=== PATIENT | female | born 1995 | race African-American/Black ===

== ENCOUNTER 2021-06-21 04:30 | Emergency (ER) | payer BC ==
--- OUTSIDE RECORDS SUMMARY | 2021-06-21 04:33 | XMS REPORT | Continuity of Care Document ---
:1995 Author Organization [facility] t Address [address] [place] [address] Care Team Providers Name Role Phone lcrukhsana Attending Clinician Unavailable Johnny Mario Attending Clinician Unavailable Alistair Attending Clinician Unavailable Stefan Attending Clinician Unavailable Genny Chawla Attending Clinician [phone] Siomn Admitting Clinician Unavailable No Admitting Clinician Unavailable Payers Payer Name Policy Type Policy Number Effective Date Expiration Date S ource Self Pay P [id number] 2019 00:00:00 Problems This patient has no known problems. Allergies, Adverse Reactions, Alerts Allergy Allergy Status Severity Reaction(s) Onset Inactive Treating Comm ents Source Name Type Date Date Clinician lisinopr DA Active SV 2019-0 [facility] [place] [facility] lisinopr DA Active SV ANGIOEDEMA 0 [facility] 08[facility] [place] [facility] No Known DA Active U 2018-0 [facility] Allergie 10-30 [place] [facility] 00:[facility] No Known DA Active U 2018-0 [facility]ie 10-30 [facility] 00:[facility]: [facility] Social History Social Habit Start Date Stop Date Quantity Comments Source time of call 2019-10-06 2019-10-06 10/06/2019 2:14 [facility] 14:13:25 14:13:25 PM Health Medications This patient has no known medications. Procedures This patient has no known procedures. Encounters Start End Encounter Admission Attending Care Care Encounter Source Date/Time Date/Time Type Type Clinicians Facility Department ID 2021-04-03 Outpatient lc.cullen [facility] [id number] [facility] 17:05:13 r [id number] [facility] 2021-04-03 Outpatient lc.cullen [facility] [id number] [facility] 17:03:25 r [id number] [facility] 2021-04-03 Outpatient lc.cullen [facility] [id number] [facility] 16:14:18 r [id number] [facility] 2020-09-18 Inpatient HCANW TREVON [id number] [facility] 07:41:00 [id number] [facility] 2020-04-20 Inpatient HCANW TREVON [id number] [facility] 22:25:00 [id number] [facility] 2019-08-27 Inpatient HCANW TREVON [id number] [facility] 00:37:00 [id number] [facility] 2019-10-06 2019-10-06 Office [place] [facility] L egacy Encounter/ [facility] 00:00:00 00:00:00 Visit [facility] 1902 [id number] [facility] [id number] [facility] 2019-08-24 2019-08-24 Office [place] [facility] Encounte r/ [facility] 00:00:00 00:00:00 Visit Artie Frazier [id number] [facility] [place] [id number] [facility] Results Test Description Test Time Test Comments Results Result Comments Source Novel Coronavirus 2019 nCoV 2020-04-23 19:50:00 Test Item Value Reference Range Interpretation Comme nts Novel Coronavirus 2019 Detected Not Detected A Criti enid Value reported toFirst nCoV (test code = COVID19) N cathy:[SOLANGE] Last Name:[VILLA]RES ULTS READ BACK AND VERIFIEDby INF E, on 04/23/20, @ 1950.Testing wa s performed using the Aptima SARS -CoV-2 assay.This nucleic acid am plification test was developed and i tsperformance characteristics determined by [facility]. Nucleic acid amplification t ests include PCRand TMA. This test has not been FDA cleared or appr kathie.This test has been authorized by FDA under an Emergency UseAu thorization (EUA). This test is on ly authorized forthe duration of lula e the declaration that circumstan cesexist justifying the authorizati on of the emergency use ofin vitro diagnostic tests for detection of SA RS-CoV-2 virusand/or diagnosis of CO VID-19 infection under [id number] 4(b)(1) of the Act, 21 U.S.C. 360bb b-3(b) (1), unless theauthorizatio n is terminated or revoked sooner. When diagnostic testing is nega tive, the possibility of afalse negative result should b e considered in the contextof a pat ient's recent exposures and t he presence ofclinical sign s and symptoms consistent with COVID-19. Anindividual wi thout symptoms of COVID-19 and wh o is notshedding SARS-CoV-2 viru s would expect to have a negative (not detected) result in this assay.Performed At: [facility] [place], [place] [id number] Tutu Petty MD Ph:[phone] Does patient have the clinical criteria consistent with COVID-19? YIs the patient going to be discharged home? YNovel Coronavirus 2019 [id number] 17:08:00 Test Item Value Reference Range Interpretation Comments Novel Coronavirus Detected Not Detected A Critical V alue reported 2019 nCoV (test toFirst Name :[] Last code = COVID19) Name:[]RESUL TS READ BACK AND VERIFIEDby INFCE, on 04/22/20, @ 170 8.Testing was performed u sing the Aptima SARS-CoV -2 assay.This nucl eic acid amplification t est was developed and itsperformance characteristics determined by [facility]. Nucleic acid am plification tests include P Carter TMA. This test has n ot been FDA cleared or appr kathie.This test has been a uthorized by FDA under an Emergency UseAuthorizatio n (EUA). This test is on ly authorized fort he duration of time the dec laration that circumsthuy cesexist justifying the authorization o f the emergency use o fin vitro diagnostic test s for detection of SA RS-CoV-2 virusand/or maria luz gnosis of COVID-19 infect ion under lwbvybd793(b)(1 ) of the Act, 21 U.S.C. 360bbb-3(b) (1), unless theauthorizatio n is terminated or r evoked sooner.When maria luz gnostic testing is nega tive, the possibility of afalse negative result should be considered in t he contextof a pat ient's recent exposure s and the presence ofclin ical signs and symptoms co nsistent with COVID-19. Anindividual wi thout symptoms of COV ID-19 and who is notshedd ing SARS-CoV-2 viru s would expect to have a negative(not de tected) result in this assay.Performed At: [facility] [address] [id number] Tutu Petty MD Ph:[phone] Does patient have the clinical criteria consistent with COVID-19? YIs the patient going to be discharged home? YCBC W/AUTO [id number] 01:57:00 Test Item Value Reference Range Interpretation Comments WHITE BLOOD CELL (test code = 8.4 x10 3/uL 3.2-11.5 N WBC) RED BLOOD CELL (test code = 4.81 x10(6)/m 3.70-5.10 N RBC) HEMOGLOBIN (test code = HGB) 12.4 g/dL 12.0-15.0 N HEMATOCRIT (test code = HCT) 40.8 % 35.7-44.8 N MEAN CELL VOLUME (test code = 85 fL 80-100 N MCV) MEAN CELL HGB (test code = MCH) 25.8 pg 26.2-33.8 L MEAN CELL HGB CONCENTRATION 30.4 g/dL 30.0-34.0 N (test code = MCHC) RED CELL DISTRIBUTION WIDTH 13.5 % 11.3-14.5 N (test code = RDW) PLATELET COUNT (test code = 177 x10 3/uL 130-408 N PLT) MEAN PLATELET VOLUME (test code 11.6 fL 8.6-12.6 N = MPV) NEUTROPHIL % (test code = NT%) 80.1 % 40.0-70.0 H IMMATURE GRANULOCYTE % (test 0.6 % 0.0-2.0 N code = IG%) LYMPHOCYTE % (test code = LY%) 10.2 % 20-40 L MONOCYTE % (test code = MO%) 6.6 % 1-10 N EOSINOPHIL % (test code = EO%) 2.0 % 0.0-5.0 N BASOPHIL % (test code = BA%) 0.5 % 0.0-1.0 N NUCLEATED RBC % (test code = 0.0 % 0.0-0.9 N NRBC%) NEUTROPHIL # (test code = NT#) 6.8 x10 3/uL 1.6-7.2 N LYMPHOCYTE # (test code = LY#) 0.86 x10 3/uL 1.1-2.7 L MONOCYTE # (test code = MO#) 0.6 x10 3/uL 0.3-0.8 N EOSINOPHIL # (test code = EO#) 0.2 x10 3/uL 0.0-0.5 N BASOPHIL # (test code = BA#) 0.0 x10 3/uL 0.0-0.1 N CBC W/AUTO [id number] 01:55:00 Test Item Value Reference Range Interpretation Comments WHITE BLOOD CELL (test code = 8.4 x10 3/uL 3.2-11.5 N WBC) RED BLOOD CELL (test code = 4.81 x10(6)/m 3.70-5.10 N RBC) HEMOGLOBIN (test code = HGB) 12.4 g/dL 12.0-15.0 N HEMATOCRIT (test code = HCT) 40.8 % 35.7-44.8 N MEAN CELL VOLUME (test code = 85 fL 80-100 N MCV) MEAN CELL HGB (test code = MCH) 25.8 pg 26.2-33.8 L MEAN CELL HGB CONCENTRATION 30.4 g/dL 30.0-34.0 N (test code = MCHC) RED CELL DISTRIBUTION WIDTH % 11.3-14.5 (test code = RDW) PLATELET COUNT (test code = x10 3/uL 130-408 PLT) MEAN PLATELET VOLUME (test code 11.6 fL 8.6-12.6 N = MPV) NEUTROPHIL % (test code = NT%) % 40.0-70.0 LYMPHOCYTE % (test code = LY%) % 20-40 MONOCYTE % (test code = MO%) % 1-10 EOSINOPHIL % (test code = EO%) % 0.0-5.0 BASOPHIL % (test code = BA%) % 0.0-1.0 NUCLEATED RBC % (test code = % 0.0-0.9 NRBC%) NEUTROPHIL # (test code = NT#) x10 3/uL 1.6-7.2 LYMPHOCYTE # (test code = LY#) x10 3/uL 1.1-2.7 MONOCYTE # (test code = MO#) x10 3/uL 0.3-0.8 EOSINOPHIL # (test code = EO#) x10 3/uL 0.0-0.5 BASIC METABOLIC [id number] 01:50:00 Test Item Value Reference Range Interpretation Comments SODIUM (test code 135 mmol/L 135-145 N = NA) POTASSIUM (test 4.1 mmol/L 3.6-5.0 N code = K) CHLORIDE (test 103 mmol/L 101-111 N code = CL) CARBON DIOXIDE 22 mmol/L 21-31 N (test code = CO2) GLUCOSE (test code 92 mg/dl 70-100 N = GLU) BLOOD UREA 10 mg/dl 6-20 N NITROGEN (test code = BUN) GLOMERULAR >=60 max >60 The estimated FILTRATION RATE estimate glomerular (test code = GFR) filtration rate is computed usingpatient ra ce, age (>18), sex, and serum creatinin e. If anyof the neede d data elements a re missing the Laboratory sabas ot compute an estimation of t he glomerular filtration rate . CREATININE (test 0.71 mg/dL 0.44-1.03 N code = CREAT) CALCIUM (test code 9.0 mg/dL 8.5-10.5 N = CA) LIVER FUNCTION [id number] 01:50:00 Test Item Value Reference Range Interpretation Comments TOTAL PROTEIN (test code = PROT) 7.8 g/dL 6.7-8.2 N ALBUMIN (test code = ALB) 3.4 g/dL 3.2-5.5 N BILIRUBIN TOTAL (test code = BILT) 0.50 mg/dL 0.2-1.3 N BILIRUBIN DIRECT (test code = 0.2 mg/dL 0.00-0.20 N BILD) SGOT/AST (test code = AST) 18 U/L 10-42 N SGPT/ALT (test code = ALT) 19 U/L 10-60 N ALKALINE PHOSPHATASE (test code = 79 U/L 42-121 N ALKP) [id number] 01:50:00 Test Item Value Reference Range Interpretation Comments LIPASE (test code = LIP) 22 IU/L 22-51 N HCG SERUM [id number] 01:07:00 Test Item Value Reference Range Interpretation Comments HCG SERUM QUAL NEGATIVE NEGATIVE This is a ashlie litative (test code = HCGQL) screenin g test.The quantitative Bh cg may be helpful.Weakly positive results should be repeated in 48 hours. UA RFLX MICR CULT IF [id number] 01:02:00 Test Item Value Reference Range Interpretation Comments UA COLOR (test code = COLU) YELLOW YELLOW UA APPEARANCE (test code = APPU) Clear CLEAR UA GLUCOSE DIPSTICK (test code = NEGATIVE NEGATIVE DGLUU) UA BILIRUBIN DIPSTICK (test code = NEGATIVE NEGATIVE BILU) UA KETONE DIPSTICK (test code = NEGATIVE NEGATIVE KETU) UA SPECIFIC GRAVITY (test code = 1.019 1.001-1.030 SGU) UA BLOOD DIPSTICK (test code = MEI) NEGATIVE NEGATIVE UA PH DIPSTICK (test code = EFRAIN) 5.0 5.0-9.0 UA PROTEIN DIPSTICK (test code = NEGATIVE NEGATIVE PROU) UA UROBILINOGEN DIPSTICK (test code NEGATIVE <=1.0 = URO) UA NITRITE DIPSTICK (test code = NEGATIVE NEGATIVE MAMIE) UA ASCORBIC ACID DIPSTICK (test code NEGATIVE = AAU) UA LEUKOCYTE ESTERASE DIPSTICK (test NEGATIVE NEGATIVE code = LEUU) UA WBC (test code = WBCUR) 0-5 /HPF 0-5 UA RBC (test code = RBCU) 0-5 /HPF 0-5 UA EPITHELIAL CELLS (test code = OCC /LPF NONE-FEW EPIU) UA BACTERIA (test code = BACU) 1+ /HPF NONE SEEN A UA MUCUS (test code = MUCU) 1+ /LPF NONE SEEN Indication for culture: Suprapubic PainSpecimen Description: CLEAN CATCH- XR CHEST 2 [id number] 01:06:00Patient Name: NORMA LONDONO Unit No: [id number] EXAMS: CPT: [id number] XR CHEST 2 V [id number] CHEST 2 VIEWS: CLINICAL HISTORY: Cough TECHNIQUE: PA and lateral views of the chest. COMPARISON: 01/08/2017 FINDINGS: The cardiac silhouette is normal in size. Vascularity appears normal. The lungs are well expanded and clear. There are no pleural effusions. No pneumothorax is seen. No osseous abnormalities are seen. IMPRESSION: Negative chest radiograph. 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
--- NOTE | 2021-06-21 05:48 | ER ---
Nurse's Notes [facility] Name: Shandra Gauthier Age: 26 yrs Sex: Female : 1995 Arrival Date: 06/21/2021 Time: 04:34 Bed Waiting Private MD: Diagnosis: ED Course: 06/21 04:34 Patient arrived in ED. wm 05:17 Patient's name was called from ER lobby. No response. bb 05:47 Patient's name was called from ER lobby. No response. Unable to locate patient. Will bb disposition as left without being seen by a provider. Administered Medications: No medications were administered Outcome: 05:48 Patient left the ED. bb Signatures: Julia Alvarado RN RN bb Yahaira Perea
== END 2021-06-21 05:48 | disposition left against medical advice (07) ==
LOC: ER 04:30
DX: Z02.89 Encounter for other administrative examinations (principal)

== ENCOUNTER 2021-08-19 07:29 | Emergency (ER) | payer BC, OTHER ==
--- OUTSIDE RECORDS SUMMARY | 2021-08-19 07:32 | XMS REPORT | Continuity of Care Document ---
:1995 Author Organization [facility] t Address [address] [place] [address] Care Team Providers Name Role Phone lcrukhsana Attending Clinician Unavailable Johnny Mario Attending Clinician Unavailable Alistair Attending Clinician Unavailable Stefan Attending Clinician Unavailable eGnny Chawla Attending Clinician [phone] Simon Admitting Clinician Unavailable No Admitting Clinician Unavailable Payers Payer Name Policy Type Policy Number Effective Date Expiration Date S ource Self Pay P [id number] 2019 00:00:00 Problems This patient has no known problems. Allergies, Adverse Reactions, Alerts Allergy Allergy Status Severity Reaction(s) Onset Inactive Treating Comm ents Source Name Type Date Date Clinician lisinopr DA Active SV 2019-0 [facility] 08[facility] [place] [facility] lisinopr DA Active SV ANGIOEDEMA 0 [facility] 08-26 [place] 00:00: [facility] 00 [facility] No Known DA Active U 2018-0 [facility] Allergie 10-30 [place] [facility] 00:00: [facility] 00 [facility] No Known DA Active U 2018-0 [facility] Allergie 10-30 [facility] 00:00: [facility] 00 are [facility] Social History Social Habit Start Date Stop Date Quantity Comments Source time of call 2019-10-06 2019-10-06 10/06/2019 2:14 [facility] 14:13:25 14:13:25 PM Health Medications This patient has no known medications. Procedures This patient has no known procedures. Encounters Start End Encounter Admission Attending Care Care Encounter Source Date/Time Date/Time Type Type Clinicians Facility Department ID 2021-04-03 Outpatient lc.cullen [facility] [id number] [facility] 17:05:13 r [id number] [facility] 2021-04-03 Outpatient lc.cullen [facility] [id number] [facility] 17:03:25 r [id number] [facility] 2021-04-03 Outpatient lc.cullen [facility] [id number] [facility] 16:14:18 r [id number] [facility] 2020-09-18 Inpatient HCANW TREVON [id number] [facility] 07:41:00 [id number] [facility] 2020-04-20 Inpatient HCANW TREVON [id number] [facility] 22:25:00 [id number] [facility] are [facility] 2019-08-27 Inpatient HCANW TREVON [id number] [facility] 00:37:00 [id number] [facility] are [facility] 2019-10-06 2019-10-06 Office [place] [facility] L egacy Encounter/ [facility] 00:00:00 00:00:00 Visit [facility] 1902 [id number] [facility] [id number] [facility] 2019-08-24 2019-08-24 Office [place] [facility] Legacy Encounte r/ [facility] 00:00:00 00:00:00 Visit Artie Frazier [id number] [facility] [id number] [facility] Results Test Description Test Time Test [...] virusand/or diagnosis of CO VID-19 infection under matdmga68 4(b)(1) of the Act, 21 U.S.C. 360bb [...] detected) result in this assay.Performed At: [facility] [place], [place] [id number] Tutu Petty MD Ph:[phone] Does patient have the clinical criteria consistent with COVID-19? YIs the patient going to be discharged home? YNovel Coronavirus 2019 [id number] 17:08:00 Test Item Value Reference Range Interpretation [...] luz gnosis of COVID-19 infect ion under (b)(1 ) of the Act, 21 U.S.C. 360bbb-3(b) [...] tected) result in this assay.Performed At: [facility] [address] [id number] Tutu Petty MD Ph:[phone] Does patient have the clinical criteria consistent with COVID-19? YIs the patient going to be discharged home? YCBC W/AUTO [id number] 01:57:00 Test Item Value Reference Range Interpretation [...] 0.0 x10 3/uL 0.0-0.1 N CBC W/AUTO [id number] 01:55:00 Test Item Value Reference Range Interpretation [...] = EO#) x10 3/uL 0.0-0.5 BASIC METABOLIC [id number] 01:50:00 Test Item Value Reference Range Interpretation [...] mg/dL 8.5-10.5 N = CA) LIVER FUNCTION [id number] 01:50:00 Test Item Value Reference Range Interpretation [...] code = 79 U/L 42-121 N ALKP) [id number] 01:50:00 Test Item Value Reference Range Interpretation Comments LIPASE (test code = LIP) 22 IU/L 22-51 N HCG SERUM [id number] 01:07:00 Test Item Value Reference Range Interpretation Comments HCG SERUM QUAL NEGATIVE NEGATIVE This is a aslhie litative (test code = HCGQL) screenin g test.The quantitative Bh cg may be helpful.Weakly positive results should be repeated in 48 hours. 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
[2021-08-19] MEDS ORDERED: KETOROLAC 30 MG/ML INJ ONE (07:48)
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
[2021-08-19 09:37] VITALS: TEMP 98.1
[2021-08-19 09:39] VITALS: BP 138/89; O2SAT 99
== END 2021-08-19 09:28 | disposition home or self-care (01) ==
LOC: ER 07:29
DX: M54.2 Cervicalgia (principal); V49.40XA Driver injured in collision with unspecified motor vehicles in traffic accident, initial encounter
CPT/HCPCS: 72125; 72128; 96372; 99283

== ENCOUNTER 2021-08-23 18:37 | Emergency (ER) | payer BC, SELFPAY ==
--- OUTSIDE RECORDS SUMMARY | 2021-08-23 18:40 | XMS REPORT | Continuity of Care Document ---
:1995 Author Organization [facility] t Address [address] [place] [address] Care Team Providers Name Role Phone [email or web address] Attending Clinician Unavailable Johnny Mario Attending Clinician Unavailable Alistair Attending Clinician Unavailable Stefan Attending Clinician Unavailable Genny Chawla Attending Clinician [phone] Simon Admitting Clinician Unavailable No Admitting Clinician Unavailable Payers Payer Name Policy Type Policy Number Effective Date Expiration Date S ource Self Pay P [id number] 2019 00:00:00 Problems This patient has no known problems. Allergies, Adverse Reactions, Alerts Allergy Allergy Status Severity Reaction(s) Onset Inactive Treating Comm ents Source Name Type Date Date Clinician lisinopr DA Active SV 2019-0 [facility] [place] 08-26 [place] [facility] are [facility] lisinopr DA Active SV ANGIOEDEMA 0 [facility] [place] 08-[facility] [place] [facility]: [facility] 00 are [facility] No Known DA Active U 2018-0 [facility] Allergie 10-30 [place] [facility] 00:[facility]: [facility] 00 are [facility] No Known DA Active U 2018-0 [facility] Allergie 10-30 [facility] 00:00: [facility] 00 are [facility] Social History Social Habit Start Date Stop Date Quantity Comments Source time of call 2019-10-06 2019-10-06 10/06/2019 2:14 [facility] 14:13:25 14:13:25 PM Health Medications This patient has no known medications. Procedures This patient has no known procedures. Encounters Start End Encounter Admission Attending Care Care Encounter Source Date/Time Date/Time Type Type Clinicians Facility Department ID 2021-04-03 Outpatient lc.cullen [facility] [id number] [facility] 17:05:13 r [id number] [facility] 2021-04-03 Outpatient lc.cullen [facility] [id number] [facility] 17:03:25 r [id number] [facility] 2021-04-03 Outpatient lc.cullen [facility] [id number] [facility] 16:14:18 r [id number] [facility] 2020-09-18 Inpatient HCANW TREVON [id number] [facility] 07:41:00 [id number] [facility] 2020-04-20 Inpatient HCANW TREVON [id number] [facility] 22:25:00 [id number] [facility] are [facility] 2019-08-27 Inpatient HCANW TREVON [id number] [facility] 00:37:00 [id number] [facility] are [facility] 2019-10-06 2019-10-06 Office Kong Mario [facility] L egacy Encounter/ [facility] 00:00:00 00:00:00 Visit [facility] 1902 [id number] [facility] [id number] [facility] 2019-08-24 2019-08-24 Office [place] [facility] Encounte r/ [facility] 00:00:00 00:00:00 Visit Artie Frazier [id number] [facility] [place] [id number] [facility] Results Test Description Test Time Test Comments [...] virusand/or diagnosis of [place] VID-19 infection under [id number] 4(b)(1) of the Act, 21 U.S.C. 360bb [...] detected) result in this assay.Performed At: [facility] [place], [place] [id number] Tutu Petty MD Ph:[phone] Does patient have the clinical criteria consistent with COVID-19? YIs the patient going to be discharged home? YNovel Coronavirus 2019 [id number] 17:08:00 Test Item Value Reference Range Interpretation [...] luz gnosis of COVID-19 infect ion under feuarjf430(b)(1 ) of the Act, 21 U.S.C. 360bbb-3(b) [...] tected) result in this assay.Performed At: [facility] [address] [id number] Tutu Petty MD Ph:[phone] Does patient have the clinical criteria consistent with COVID-19? YIs the patient going to be discharged home? YCBC W/AUTO [id number] 01:57:00 Test Item Value Reference Range Interpretation [...] 0.0 x10 3/uL 0.0-0.1 N CBC W/AUTO [id number] 01:55:00 Test Item Value Reference Range Interpretation [...] = EO#) x10 3/uL 0.0-0.5 BASIC METABOLIC [id number] 01:50:00 Test Item Value Reference Range Interpretation [...] mg/dL 8.5-10.5 N = CA) LIVER FUNCTION [id number] 01:50:00 Test Item Value Reference Range Interpretation [...] code = 79 U/L 42-121 N ALKP) [id number] 01:50:00 Test Item Value Reference Range Interpretation Comments LIPASE (test code = LIP) 22 IU/L 22-51 N HCG SERUM [id number] 01:07:00 Test Item Value Reference Range Interpretation Comments HCG SERUM QUAL NEGATIVE NEGATIVE This is a ashlie litative (test code = HCGQL) screenin g test.The quantitative Bh cg may be helpful.Weakly positive results should be repeated in 48 hours. 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 : 1995 Age: 24 Sex:[place] [address] Loc: N.ERS Exam Date: 08/27/2019 Status: PRE ER PH: FAX: PAGE 1 Signed Report
[2021-08-23] MEDS ORDERED: MORPHINE 4 MG/ML SYR ONE (20:37)
[2021-08-23] MEDS ORDERED: ACETAMINOPHEN 325 MG TABLET ONE ×2 (20:37→22:22)
[2021-08-23] MEDS ORDERED: ONDANSETRON 4 MG/2 ML VIAL ONE (20:37)
[2021-08-23] MEDS ORDERED: FAMOTIDINE 20 MG/2 ML VIAL IV ONE (20:38)
[2021-08-23] MEDS ORDERED: NA CHLORIDE 0.9% 1,000 ML ONE ×2 (20:38→23:59)
[2021-08-23 20:43] LABS: Hematocrit 41.1 % (36.0-45.0); Lymphocytes % 9.3 % (15.3-44.8); MPV 9.9 fL (7.6-11.3); RBC Red Blood Cell Count 5.13 M/uL (3.86-4.86)
--- NOTE | 2021-08-23 20:49 | RAD REPORT ---
EXAM DESCRIPTION: RAD - Chest Single View - 08/23/2021 8:22 pm CLINICAL HISTORY: FEVER COMPARISON: No comparisons FINDINGS: Lines: None. Lungs: No evidence of edema or pneumonia. Pleural: No significant pleural effusions or pneumothorax. Cardiac: The heart size is within normal limits. Bones: No acute fractures. Other: IMPRESSION: No acute cardiopulmonary disease.
[2021-08-23 21:43] LABS: SARS-COV-2 RT PCR NEGATIVE (NEGATIVE)
[2021-08-23 22:18] LABS: Potassium 3.5 mmol/L (3.5-5.1); Sodium Level 136 mmol/L (136-145)
[2021-08-23 22:19] LABS: ALT/SGPT 27 U/L (12-78); AST/SGOT 18 U/L (15-37); Alkaline Phosphatase 111 U/L (45-117); BUN Blood Urea Nitrogen 9 mg/dL (7-18); Bicarbonate 26 mmol/L (21-32); Bilirubin Total 0.6 mg/dL (0.2-1.0); Glucose Level 97 mg/dL (74-106)
[2021-08-23 22:20] LABS: Albumin 3.5 g/dL (3.4-5.0); Bilirubin Direct 0.1 mg/dL (0-0.2); Lipase 60 U/L (73-393); Protein, Total 8.9 g/dL (6.4-8.2)
[2021-08-23 22:53] LABS: Urine Blood Negative (Negative); Urine Glucose Negative (Negative); Urine Protein Negative (Negative); Urine Specific Gravity 1.025 (1.005-1.030); Urine pH 6.5 (5.0-7.0)
[2021-08-23 23:10] LABS: Urine Specific Gravity/Preg 1.005 (1.005-1.030)
[2021-08-23 23:20] LABS: Urine Bacteria 20-50 /HPF (<20); Urine Mucus 2+ /HPF (NONE SEEN); Urine RBC <5 /HPF (NONE SEEN)
[2021-08-23] MEDS ORDERED: CEFTRIAXONE 1000 MG/VIAL ONE (23:59)
[2021-08-24] MEDS ORDERED: NA CHLORIDE 0.9% 50 ML ONE
--- NOTE | 2021-08-24 00:31 | ER ---
Nurse's Notes [facility] Name: Shandra Gauthier Age: 26 yrs Sex: Female : 1995 Arrival Date: 08/23/2021 Time: 18:40 Bed 18 Private MD: Diagnosis: Gastroenteritis Presentation: 08/23 19:01 Chief complaint: Patient states: "I woke up to day at 0500 this morning with vomiting jd3 and body aches. every time I vomit I have diarrhea too. I can't keep anything down.". Coronavirus screen: chills, cough unrelated to allergies, diarrhea, fatigue, fever, muscle pain, nausea, shaking with chills, sore throat. Ebola Screen: No symptoms or risks identified at this time. Initial Sepsis Screen: Does the patient meet any 2 criteria? No. Patient's initial sepsis screen is negative. Does the patient have a suspected source of infection? No. Patient's initial sepsis screen is negative. Risk Assessment: Do you want to hurt yourself or someone else? Patient reports no desire to harm self or others. Onset of symptoms was August 23, 2021. 19:01 Method Of Arrival: Ambulatory jd3 19:01 Acuity: JACKELIN 3 jd3 Triage Assessment: 19:00 GI: Reports intolerance of fluids, intolerance of food, nausea, vomiting. vc1 08/24 00:00 General: Appears in no apparent distress. uncomfortable, ill, obese, Behavior is calm, vc1 cooperative, appropriate for age. Pain: Complains of pain in head Pain does not radiate. Pain currently is 8 out of 10 on a pain scale. 00:00 GI: Patient currently denies nausea. vc1 HAM SAWYER: 08/23 19:04 LMP N/A - control method jd3 Historical: - Allergies: 19:02 Lisinopril; jd3 - Home Meds: 19:02 Metformin Oral [Active]; control [Active]; jd3 - PMHx: 19:02 PCOS; jd3 - PSHx: 19:02 None; jd3 - Immunization history:: Adult Immunizations up to date, Client reports receiving the 2nd dose of the Covid vaccine, Flu vaccine is not up to date. - Social history:: Smoking status: Patient denies any tobacco usage or history of. Screenin:00 Abuse screen: Denies threats or abuse. Nutritional screening: No deficits noted. vc1 Tuberculosis screening: No symptoms or risk factors identified. Fall Risk None identified. Assessment: 19:00 General: Appears in no apparent distress. uncomfortable, ill, obese, Behavior is vc1 cooperative, appropriate for age, drowsy. Neuro: Level of Consciousness is awake, alert, obeys commands, Oriented to person, place, time, situation, Appropriate for age. Cardiovascular: Denies chest pain, Rhythm is sinus tachycardia. Respiratory: Airway is patent Respiratory effort is even, unlabored, Respiratory pattern is regular, symmetrical. 19:00 GI: Abd is soft and non tender. vc1 20:00 Reassessment: Patient and/or family updated on plan of care and expected duration. Pain vc1 level reassessed. Patient is alert, oriented x 3, equal unlabored respirations, skin warm/dry/pink. Patient states symptoms have improved. 21:00 Reassessment: Patient and/or family updated on plan of care and expected duration. Pain vc1 level reassessed. Patient is alert, oriented x 3, equal unlabored respirations, skin warm/dry/pink. 22:00 Reassessment: Patient and/or family updated on plan of care and expected duration. Pain vc1 level reassessed. Patient is alert, oriented x 3, equal unlabored respirations, skin warm/dry/pink. 23:00 Reassessment: Patient and/or family updated on plan of care and expected duration. Pain vc1 level reassessed. Patient is alert, oriented x 3, equal unlabored respirations, skin warm/dry/pink. 08/24 00:00 Reassessment: Patient and/or family updated on plan of care and expected duration. Pain vc1 level reassessed. Patient is alert, oriented x 3, equal unlabored respirations, skin warm/dry/pink. Patient states feeling better. 01:02 Reassessment: Patient and/or family updated on plan of care and expected duration. Pain vc1 level reassessed. Patient is alert, oriented x 3, equal unlabored respirations, skin warm/dry/pink. IV fluids still infusing Patient states feeling better. Patient states symptoms have improved. Vital Signs: 08/23 19:04 BP 128 / 75; Pulse 115; Resp 19 S; Temp 101.0(O); Pulse Ox 98% on R/A; Weight 189.6 kg jd3 (R); Height 5 ft. 5 in. (165.10 cm) (R); Pain 10/10; 20:00 BP 129 / 77; Pulse 110; Resp 18; Pulse Ox 100% on R/A; vc1 21:30 Temp 101.1; vc1 21:30 BP 110 / 77; Pulse 83; Resp 18; Pulse Ox 97% ; vc1 21:42 Temp 101.1; vc1 23:26 Temp 98.9; vc1 23:52 Temp 98.9; lp1 03/ 00:19 BP 116 / 68; Pulse 77; Resp 18; Temp 98.9; Pulse Ox 94% on R/A; vc1 01:09 BP 109 / 51; Pulse 74; Resp 18; Pulse Ox 98% on R/A; Pain 0/10; vc1 03 19:04 Body Mass Index 69.56 (189.60 kg, 165.10 cm) j ED Course: 08/23 18:40 Patient arrived in ED. as 19:00 Patient has correct armband on for positive identification. Bed in low position. Call vc1 light in reach. Pulse ox on. NIBP on. 19:02 Triage completed. jd3 19:04 Arm band placed on. jd3 19:05 Moreno Durán MD is Attending Physician. 7 19:12 Veronica Dawkins, RASHIDA is Primary Nurse. vc1 20:20 Initial lab(s) drawn, by la, sent to lab. First set of blood cultures drawn by la. lt3 20:21 Chest Single View XRAY In Process Unspecified. EDMS 20:24 Inserted saline lock: 22 gauge in left antecubital area, using aseptic technique. lt3 20:28 COVID swab sent to lab. Strep swab sent to lab. lt3 20:29 Rapid Strep Sent. lt3 20:29 COVID-19/FLU A+B (Document "Date of Onset" if Symptomatic) Sent. lt3 23:21 CT Abd/Pelvis - IV Contrast Only In Process Unspecified. EDMS 03/ 00:30 Isaac Stephens MD is Referral Physician. 7 01:27 No provider procedures requiring assistance completed. IV discontinued, intact, vc1 bleeding controlled, No redness/swelling at site. Pressure dressing applied. Administered Medications: 08/23 20:58 Drug: Tylenol 650 mg Route: PO; vc1 21:30 Follow up: Temp 101.1; Response: Temperature is increased vc1 20:58 Drug: morphine 4 mg Route: IVP; Site: left antecubital; vc1 21:30 Follow up: BP 110 / 77; Pulse 83 bpm; Resp 18 bpm; Pulse Ox 97% ; Response: No adverse vc1 reaction; Pain is decreased 20:59 Drug: NS 0.9% 1000 ml Route: IV; Rate: 1000 ml; Site: left antecubital; vc1 22:00 Follow up: IV Status: Completed infusion; IV Intake: 1000ml vc1 20:59 Drug: Zofran (Ondansetron) 4 mg Route: IVP; Site: left antecubital; vc1 21:30 Follow up: Response: No adverse reaction; Marked relief of symptoms vc1 20:59 Drug: Pepcid (famotidine) 20 mg Route: IVP; Site: left antecubital; vc1 08/24 01:06 Follow up: Response: No adverse reaction; Nausea is decreased vc1 08/23 22:20 Drug: Tylenol 325 mg Route: PO; vc1 23:52 Follow up: Temp 98.9; Response: No adverse reaction; Temperature is decreased lp1 08/24 00:07 Drug: Rocephin (cefTRIAXone) 1 grams Route: IV; Rate: per protocol; Site: left vc1 antecubital; 01:05 Follow up: Response: No adverse reaction; IV Status: Completed infusion; IV Intake: [id number] 00:07 Drug: NS 0.9% 1000 ml Route: IV; Rate: 1000 ml; Site: left antecubital; vc1 01:25 Follow up: IV Status: Completed infusion; IV Intake: 1000ml vc1 Intake: 08/23 22:00 IV: 1000ml; Total: 1000ml. vc1 08/24 01:05 IV: 50ml; Total: 1050ml. vc1 01:25 IV: 1000ml; Total: 2050ml. vc1 Outcome: 00:31 Discharge ordered by mhDoron 01:27 Discharged to home ambulatory, with family. vc1 01:27 Condition: good 01:27 Discharge instructions given to patient, Instructed on discharge instructions, follow up and referral plans. medication usage, Demonstrated understanding of instructions, follow-up care, medications, Prescriptions given X 4. 01:29 Patient left the ED. vc1 Signatures: Dispatcher [employer] Michelle Prajapati Laura, RN RN lp1 Anthony Myles RN RN Moreno Fuller MD MD 7 [facility] Veronica Dawkins RN RN vc1 Corrections: (The following items were deleted from the chart) 00:24 00:22 GI: vc1 vc1
--- NOTE | 2021-08-24 00:32 | EDPHYS ---
Physician Documentation [facility] Name: Shandra Gauthier Age: 26 yrs Sex: Female : 1995 Arrival Date: 08/23/2021 Time: 18:40 Bed 18 Private MD: ED Physician Moreno Durán HPI: 08/23 19:51 This 26 yrs old Black Female presents to ER via Ambulatory with complaints of mh7 Vomiting/Diarrhea. 19:51 The patient presents to the emergency department with nausea, that is moderate, mh7 vomiting, that is intermittent, described as clear fluid, diarrhea, that is intermittent, abdominal pain, of the epigastric area, right upper quadrant and left upper quadrant, described as intermittent, vague,\\E\\ waxing and waning, and does not radiate. Onset: The symptoms/episode began/occurred this morning, today. Possible causes: unknown. The symptoms are aggravated by food , The symptoms are alleviated by nothing. Associated signs and symptoms: Pertinent positives: abdominal pain, diarrhea, nausea, vomiting, body aches. Severity of symptoms: At their worst the symptoms were moderate today, in the emergency department the symptoms are unchanged. 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 - Social history:: Smoking status: Patient denies any tobacco usage or history of. ROS: 19:51 Constitutional: Negative for fever, chills, and weight loss, Eyes: Negative for injury, mh7 pain, redness, and discharge, ENT: Negative for injury, pain, and discharge, Neck: Negative for injury, pain, and swelling, Cardiovascular: Negative for chest pain, palpitations, and edema, Respiratory: Negative for shortness of breath, cough, wheezing, and pleuritic chest pain, Back: Negative for injury and pain, : Negative for injury, bleeding, discharge, and swelling, MS/Extremity: Negative for injury and deformity, Skin: Negative for injury, rash, and discoloration, Neuro: Negative for headache, weakness, numbness, tingling, and seizure, Psych: Negative for depression, anxiety, suicide ideation, homicidal ideation, and hallucinations, Allergy/Immunology: Negative for hives, rash, and allergies, Endocrine: Negative for neck swelling, polydipsia, polyuria, polyphagia, and marked weight changes, Hematologic/Lymphatic: Negative for swollen nodes, abnormal bleeding, and unusual bruising. Exam: 19:51 Head/Face: Normocephalic, atraumatic. Eyes: Pupils equal round and reactive to light, mh7 extra-ocular motions intact. Lids and lashes normal. Conjunctiva and sclera are non-icteric and not injected. Cornea within normal limits. Periorbital areas with no swelling, redness, or edema. Neck: Trachea midline, no thyromegaly or masses palpated, and no cervical lymphadenopathy. Supple, full range of motion without nuchal rigidity, or vertebral point tenderness. No Meningismus. Chest/axilla: Normal chest wall appearance and motion. Nontender with no deformity. No lesions are appreciated. Respiratory: Lungs have equal breath sounds bilaterally, clear to auscultation and percussion. No rales, rhonchi or wheezes noted. No increased work of breathing, no retractions or nasal flaring. Back: No spinal tenderness. No costovertebral tenderness. Full range of motion. Skin: Warm, dry with normal turgor. Normal color with no rashes, no lesions, and no evidence of cellulitis. MS/ Extremity: Pulses equal, no cyanosis. Neurovascular intact. Full, normal range of motion. Neuro: Awake and alert, GCS 15, oriented to person, place, time, and situation. Cranial nerves II-XII grossly intact. Motor strength 5/5 in all extremities. Sensory grossly intact. Cerebellar exam normal. Normal gait. Psych: Awake, alert, with orientation to person, place and time. Behavior, mood, and affect are within normal limits. 19:51 Constitutional: The patient appears in no acute distress, alert, awake, uncomfortable. 19:51 Cardiovascular: Rate: tachycardic, Rhythm: regular, Pulses: no pulse deficits are mh7 appreciated, Heart sounds: normal, normal S1and S2, Edema: is not appreciated, JVD: is not appreciated. 19:51 Abdomen/GI: Inspection: obese Bowel sounds: normal, in all quadrants, Palpation: mh7 moderate abdominal tenderness, in the epigastric area, right upper quadrant and left upper quadrant, mass, is not appreciated, rebound tenderness, is not appreciated, voluntary guarding, is not appreciated, involuntary guarding, is not appreciated, no appreciated organomegaly, Rectal exam: the exam is deferred, because of patient request, Indicators: McBurney's point is not tender, Guallpa's sign is negative, Rovsing's sign is negative, Obturator sign is negative, Psoas sign is negative, Liver: no appreciated palpable abnormalities, Hernia: not appreciated. Vital Signs: 19:04 BP 128 / 75; Pulse 115; Resp 19 S; Temp 101.0(O); Pulse Ox 98% on R/A; Weight 189.6 kg jd3 (R); Height 5 ft. 5 in. (165.10 cm) (R); Pain 10/10; 20:00 BP 129 / 77; Pulse 110; Resp 18; Pulse Ox 100% on R/A; vc1 21:30 Temp 101.1; vc1 21:30 BP 110 / 77; Pulse 83; Resp 18; Pulse Ox 97% ; vc1 21:42 Temp 101.1; vc1 23:26 Temp 98.9; vc1 23:52 Temp 98.9; lp1 03/06 00:19 BP 116 / 68; Pulse 77; Resp 18; Temp 98.9; Pulse Ox 94% on R/A; vc1 01:09 BP 109 / 51; Pulse 74; Resp 18; Pulse Ox 98% on R/A; Pain 0/10; vc1 03/05 19:04 Body Mass Index 69.56 (189.60 kg, 165.10 cm) jd3 MDM: 00:29 Differential diagnosis: Nonspecific abd pain, gastritis, cholecystitis, pancreatitis, mh7 appendicitis, diverticulitis, viral gastroenteritis, gastroenteritis. Data reviewed: vital signs, nurses notes, lab test result(s), CBC, electrolytes, Flu: negative urinalysis, radiologic studies, CT scan. Data interpreted: Pulse oximetry: on room air is 97 %. Interpretation: normal. Counseling: I had a detailed discussion with the patient and/or guardian regarding: the historical points, exam findings, and any diagnostic results supporting the discharge/admit diagnosis, lab results, radiology results, the need for outpatient follow up, to return to the emergency department if symptoms worsen or persist or if there are any questions or concerns that arise at home. Response to treatment: the patient's symptoms have resolved after treatment, the patient's blood pressure is in an acceptable range, mental status has returned to baseline, the patient no longer shows bradycardia, the patient is not short of breath, the patient is not tachycardic, the patient's pain is gone, the patient's temperature has normalized, the patient is now symptom free, patient is well hydrated. 00:31 Patient medically screened. [facility] 08/23 19:28 Order name: Basic Metabolic Panel; Complete Time: 23:02 [facility] 08/23 19:28 Order name: CBC with Diff; Complete Time: 20:54 [facility] 08/23 19:28 Order name: Hepatic Function; Complete Time: 23:02 [facility] 08/23 19:28 Order name: Lipase; Complete Time: 23:02 [facility] 08/23 19:28 Order name: Urine Microscopic Only; Complete Time: 23:42 [facility] 08/23 19:28 Order name: COVID-19/FLU A+B (Document "Date of Onset" if Symptomatic); Complete Time: [facility] 23:02 08/23 19:28 Order name: Rapid Strep; Complete Time: 23:02 [facility] 08/23 19:28 Order name: Blood Culture Adult (2) [facility] 08/23 19:28 Order name: Chest Single View XRAY; Complete Time: 20:54 [facility] 08/23 21:09 Order name: Throat Culture [facility] 08/23 22:53 Order name: Urine Dipstick-Ancillary; Complete Time: 23:02 [facility] 08/23 22:53 Order name: Urine --Ancillary (enter results) 9 08/23 22:53 Order name: Urine --Ancillary; Complete Time: 23:42 [facility] 08/23 23:20 Order name: Urine Culture [facility] 08/23 19:28 Order name: IV Saline Lock; Complete Time: 20:29 [facility] 08/23 19:28 Order name: Labs collected and sent; Complete Time: 20:29 [facility] 08/23 19:28 Order name: Urine Dipstick-Ancillary (obtain specimen); Complete Time: 22:57 [facility] 08/23 19:28 Order name: Urine Test (obtain specimen); Complete Time: 22:57 [facility] 08/23 20:37 Order name: CT Abd/Pelvis - IV Contrast Only [facility] 08/23 21:12 Order name: Misc. Order: recollect all labs; Complete Time: 22:28 la1 Administered Medications: 08/23 20:58 Drug: Tylenol 650 mg Route: PO; vc1 21:30 Follow up: Temp 101.1; Response: Temperature is increased vc1 20:58 Drug: morphine 4 mg Route: IVP; Site: left antecubital; vc1 21:30 Follow up: BP 110 / 77; Pulse 83 bpm; Resp 18 bpm; Pulse Ox 97% ; Response: No adverse vc1 reaction; Pain is decreased 20:59 Drug: NS 0.9% 1000 ml Route: IV; Rate: 1000 ml; Site: left antecubital; vc1 22:00 Follow up: IV Status: Completed infusion; IV Intake: 1000ml vc1 20:59 Drug: Zofran (Ondansetron) 4 mg Route: IVP; Site: left antecubital; vc1 21:30 Follow up: Response: No adverse reaction; Marked relief of symptoms vc1 20:59 Drug: Pepcid (famotidine) 20 mg Route: IVP; Site: left antecubital; vc1 08/24 01:06 Follow up: Response: No adverse reaction; Nausea is decreased vc1 08/23 22:20 Drug: Tylenol 325 mg Route: PO; vc1 23:52 Follow up: Temp 98.9; Response: No adverse reaction; Temperature is decreased 1 08/24 00:07 Drug: Rocephin (cefTRIAXone) 1 grams Route: IV; Rate: per protocol; Site: left vc1 antecubital; 01:05 Follow up: Response: No adverse reaction; IV Status: Completed infusion; IV Intake: [id number] 00:07 Drug: NS 0.9% 1000 ml Route: IV; Rate: 1000 ml; Site: left antecubital; vc1 01:25 Follow up: IV Status: Completed infusion; IV Intake: 1000ml vc1 Disposition Summary: 08/24/21 00:31 Discharge Ordered Location: Home [facility] Problem: new mh7 Symptoms: have improved mh7 Condition: Stable mh7 Diagnosis - Gastroenteritis [facility] Followup: [facility] - With: Private Physician - When: 1 - 2 days - Reason: Worsening of condition, Recheck today's complaints, Continuance of care, Re-evaluation by your physician Followup: [facility] - With: Isaac Stephens MD - When: 2 - 3 days - Reason: Worsening of condition, Recheck today's complaints Discharge Instructions: - Discharge Summary Sheet [facility] - Food Choices to Help Relieve Diarrhea, Adult [facility] - Viral Gastroenteritis, Adult, [id number] [facility] Forms: - Medication Reconciliation Form [facility] - Thank You Letter [facility] - Antibiotic Education [facility] - Prescription Opioid Use [facility] Prescriptions: - ondansetron 4 mg Oral tablet,disintegrating - place 1 tablet by TRANSLINGUAL route every 8 hours As needed; 10 tablet; [facility] Refills: 0, Product Selection Permitted - Pepcid 20 mg Oral Tablet - take 1 tablet by ORAL route every 12 hours for 5 days; 10 tablet; Refills: 0, [facility] Product Selection Permitted - Cipro 500 mg Oral Tablet - take 1 tablet by ORAL route every 12 hours for 7 days; 14 tablet; Refills: 0, [facility] Product Selection Permitted - dicyclomine 20 mg Oral Tablet - take 1 tablet by ORAL route 4 times per day As needed; 20 tablet; Refills: 0, [facility] Product Selection Permitted Signatures: Dispatcher [employer] Jefry Cordero, AUTOMATIC VULCANIZING LEAD OPERATOR-C AUTOMATIC VULCANIZING LEAD OPERATOR-Cla1 Anthony Myles RN RN jd3 Moreno Durán MD MD 7 Veronica Dawkins RN RN vc1 Myla Petersen RN lp1
[2021-08-24 01:49] VITALS: TEMP 98.9
[2021-08-24 01:53] VITALS: BP 109/51; O2SAT 98
--- NOTE | 2021-08-25 13:02 | RAD REPORT ---
EXAM DESCRIPTION: CT - Abdomen Pelvis W Contrast - 08/24/2021 6:24 am CLINICAL HISTORY: 26 years, Female, Diarrhea;Abd pain;Nausea / vomiting COMPARISON: None. TECHNIQUE: Contrast-enhanced images of the abdomen and pelvis were performed utilizing 5 mm slice th ickness at 5 mm interval reconstruction from the lung bases to the ischial tuberosities after the adm inistration IV contrast. In addition multiplanar reformats in the coronal and sagittal plane were obtained and reviewed. This exam was performed according to our departmental dose-optimization protocol, which includes auto mated exposure control, adjustment of the mA and/or kV according to patient size and/or use of iterat joleen reconstruction technique. FINDINGS: Study is compromised due to ringdown artifact from large patient body habitus. The lung bases demonstrate to be clear. The liver, gallbladder, pancreas, spleen and adrenal glands demonstrate to be unremarkable, no focal lesions are noted. The kidneys demonstrate normal uptake of contrast media. No evidence for nephrolithiasis and/or hydro nephrosis. Grossly the unopacified stomach, small bowel and large bowel demonstrate to be within normal limits. There is no evidence for bowel dilatation and/or free air. The appendix is normal. The left site colon is decompressed The urinary bladder demonstrate to be unremarkable. The uterus demonstrate to be within normal limi ts. Right adnexal cystic lesion measuring 2.6 x 2.2 cm on image 78. The aorta demonstrate to be nor mal. There is no retroperitoneal lymphadenopathy. There is no evidence for ascites/or significant a bnormal fluid collections. The rest of the soft tissue and bony structures are within normal limits. IMPRESSION: 2.6 cm right adnexal simple-appearing cyst. No follow-up imaging is recommended. Study is compromised due to ringdown artifact from large patient body habitus. Electronically signed by: Hai Du MD 08/23/2021 11:29 PM [employer] Due to temporary technical issues with the PACS/Fluency reporting system, reports are being signed by the in house radiologist without review as a courtesy to ensure prompt reporting. The interpreting r adiologist is fully responsible for the content of the report.
== END 2021-08-24 01:29 | disposition home or self-care (01) ==
LOC: ER 18:37
DX: K52.9 Noninfective gastroenteritis and colitis, unspecified (principal); Z88.8 Allergy status to other drugs, medicaments and biological substances; Z20.822 Contact with and (suspected) exposure to COVID-19
CPT/HCPCS: 0240U; 36415; 71045; 74177; 80048; 80076; 81003; 81015; 81025; 83690; 85025; 87040; 87070; 87077; 87081; 87086; 87088; 87186; 96361; 96365; 96375; 99284; J2405; J7030; Q9967

== ENCOUNTER 2022-12-01 21:57 | Emergency (ER) | payer SELFPAY ==
[2022-12-01] MEDS ORDERED: ALBUTEROL 2.5 MG/3 ML NEB SOL ONE (22:22)
[2022-12-01] MEDS ORDERED: METHYLPREDNISOLONE 125 MG INJ ONE (22:23)
[2022-12-01] MEDS ORDERED: IPRATROPIUM BROM 0.5MG/2.5ML ONE (22:23)
[2022-12-01] MEDS ORDERED: NA CHLORIDE 0.9% 1,000 ML ONE (22:23)
--- OUTSIDE RECORDS SUMMARY | 2022-12-01 22:23 | XMS REPORT | Continuity of Care Document ---
:1995 Author Organization [facility] t Address [address] [place] [address] Care Team Providers Name Role Phone .kateryna Attending Clinician Unavailable DENEEN ALBARRAN Attending Clinician Unavailable ROXANE PEREZ Attending Clinician Unavailable CORAZON NAIR Attending Clinician Unavailable MIAH GARIBAY Attending Clinician Unavailable LADY COOLEY Attending Clinician Unavailable MD ATIYA Attending Clinician Unavailable LISA LEIGH Attending Clinician Unavailable ROSALEE SMITH Attending Clinician Unavailable LAB90 Attending Clinician Unavailable CATA MARTINEZ Attending Clinician Unavailable CHET PINTO Attending Clinician Unavailable ENRIQUE SCHNEIDER Attending Clinician Unavailable MARIAM KAYE Attending Clinician Unavailable GLENN GUERRERO Attending Clinician Unavailable NOE ARTHUR Attending Clinician Unavailable Kong Mario Attending Clinician Unavailable Hayde Sainz Attending Clinician Unavailable Alyson Aviles Attending Clinician Unavailable Artie Chawla Attending Clinician [phone] Bala Montes Admitting Clinician Unavailable No, Doc Admitting Clinician Unavailable Payers Payer Name Policy Type Policy Number Effective Date Expiration Date S ourkaci Self Pay P [id number] 2019 00:00:00 [employer] MP CVS 9 [id number] 2022 00:00:00 SILVER $[id number] BASIC 94 Problems This patient has no known problems. Allergies, Adverse Reactions, Alerts Allergy Allergy Status Severity Reaction(s) Onset Inactive Treating Comm ents Source Name Type Date Date Clinician Lisinopr Propensi Active Swelling Alee ey il ty to 09-17 Seybold adverse 00:00: - reaction 00 Externa s l lisinopr DA Active SV [facility] 08-26 [place] 00:[facility]: [facility] 00 are [facility] lisinopr DA Active SV ANGIOEDEMA [facility] il 08-26 [place] 00:00: [facility] 00 are [facility] Lisinopr Propensi Active Swelling Alee ey il ty to 08-26 Seybold adverse 00:00: - reaction 00 Externa s l No Known DA Active U [facility] Allergie 10-30 [facility] 00:00: [facility] 00 are [facility] No Known DA Active U [facility] Allergie 10-30 [facility] 00:00: [facility] 00 are [facility] Social History Social Habit Start Date Stop Date Quantity Comments Source Gender identity 2022-08-19 Identifies as Michelle Bee - 01:34:48 female gender External (finding) Sexual orientation 2022-08-19 Heterosexual Aleejohan Bee - 01:34:48 (finding) External History SDOH Michelle Goss ld - Alcohol Frequency Externa l History SDOH Michelle Goss ld - Alcohol Std Drinks [employer] al History SDOH Michelle Goss ld - Alcohol Binge External Alcohol intake 2022-10-13 2022-10-13 .14 /d Michelle schreiber - 00:00:00 00:00:00 External Alcohol Comment 2022-09-18 2022-09-18 social , wine rum Jus Bee - 00:00:00 00:00:00 and vodka External History of Social 2022-09-18 2022-09-18 Michelle Bee - function 00:00:00 00:00:00 External Tobacco use and 2022-09-17 2022-09-17 Smokeless tobacco Jus Bee - exposure 00:00:00 00:00:00 non-user External time of call 2019-10-06 2019-10-06 10/06/2019 2:14 PM [facility] 14:13:25 14:13:25 Health Sex Ass[birth year] At [birth year] Brenda morse - 00:00:00 00:00:00 External Smoking Status Start Date Stop Date Source Tobacco smoking consumption unknown Michelle Zavalaybold - External Never smoked tobacco Michelle Navarrete old - External Medications Ordered Filled Start Stop Current Ordering Indication Dosage Frequency Signature Comments Components Source Medication Medication Date Date Medication? Clinician (SIG) Name Name Albuterol 0 3- No Q.25D Inhale Alee ey Sulfate 108 4-25 04-25 into the Sey bold (90 Base) 09:00: 00:00 lungs - MCG/ACT 48 :00 every 6 Externa inhalation hours as l AEROSOL needed POWDER, BREATH ACTIVATED predniSONE Yes 20mg Take 1 Kelse y (DELTASONE) 4-25 tablet (20 Se ybold 20 MG oral 08:28: mg total) - tablet 00 by mouth Externa daily l Turmeric Yes 1{capsu Take 1 Alee ey (QC Tumeric 4-25 le} capsule by Se ybold Complex) 08:22: mouth - 500 MG oral 27 daily Externa Capsule l Multiple Yes 1{capsu Take 1 Alee ey Vitamins-Mi 4-25 le} capsule by Se ybold nerals 08:22: mouth - (HAIR SKIN 27 daily Externa AND NAILS l FORMULA OR) Probiotic Yes Take by Kelse y Product 4-25 mouth Seybold (PROBIOTIC- 08:22: - 10 OR) 27 Externa l Dulaglutide Yes [id number] .75mg Inject Michelle (Trulicity) 4-25 104 0.75 mg Seybo ld 0.75 00:00: into the - MG/0.5ML 00 skin once [employer] a subcutaneou a week l s Solution Pen-injecto r Albuterol Yes [id number] 2{puff} Q4H Inhale 2 Michelle HFA 108 (90 4-25 puffs into Se ybold Base) 00:00: the lungs - MCG/ACT IN 00 every 4 [employer] a AERS hours as l needed for wheezing Fluticasone Yes [id number] 1{puff} Inhale 1 Michelle Propionate 4-25 puff into Seyb old HFA 00:00: the lungs - (Flovent 00 2 times Externa HFA) 110 daily l MCG/ACT inhalation Aerosol Pantoprazol Yes [id number] 40mg Take 1 Michelle e Sodium 40 4-25 tablet (40 Se ybold MG oral 00:00: mg total) - Tablet 00 by mouth Externa Delayed daily l Response Trulicity 2022- No [id number] .75mg Inject Michelle 0.75 4-04 -25 104 0.75 mg Seybold MG/0.5ML 00:00: 00:00 into the - subcutaneou 00 :00 skin once Ext manoj s Solution a week l Pen-injecto r Turmeric Yes 1{capsu Take 1 Alee ey (QC Tumeric 4-03 le} capsule by Se morse Complex) 16:02: mouth - 500 MG oral 04 daily Externa Capsule l Multiple Yes 1{capsu Take 1 Alee ey Vitamins-Mi 4-03 le} capsule by Se morse nerals 16:02: mouth - (HAIR SKIN 04 daily Externa AND NAILS l FORMULA OR) Semaglutide Yes [id number] .25mg Inject Michelle (0.25 or 4-03 0.25 mg Seybold 0.5 00:00: into the - mg/dose) 2 00 skin once Exte rna mg/1.5 mL a week l SQ Solution Pen-Injecto r Semaglutide 2022- No [id number] .25mg Inject Michelle (0.25 or 4-03 04-03 0.25 mg Seybold 0.5 00:00: 00:00 into the - mg/dose) 2 00 :00 skin once Exte rna mg/1.5 mL a week l SQ Solution Pen-Injecto r Vital Signs Vital Name Observation Time Observation Value Comments Source Systolic blood 2022-10-13 13:19:00 120 mm[Hg] Michelle Seybold - pressure External Diastolic blood 2022-10-13 13:19:00 80 mm[Hg] Kelse y Seybold - pressure External Heart rate 2022-10-13 13:19:00 113 /min Michelle S eybold - External Body temperature 2022-10-13 13:19:00 36 Lisa Alee ey Seybold - External Respiratory rate 2022-10-13 13:19:00 15 /min Alee ey Seybold - External Body height 2022-10-13 13:19:00 167.6 cm Michelle S eybold - External Body weight 2022-10-13 13:19:00 188.696 kg Michelle S eybold - External BMI 2022-10-13 13:19:00 67.14 kg/m2 Michelle S eybold - External Systolic blood 2022-09-21 20:53:00 126 mm[Hg] Michelle Seybold - pressure External Diastolic blood 2022-09-21 20:53:00 76 mm[Hg] Inocenciose y Seybold - pressure External Heart rate 2022-09-21 20:53:00 80 /min Michelle Oseguera eybold - External Body temperature 2022-09-21 20:53:00 36.44 Lisa Alee ey Seybold - External Respiratory rate 2022-09-21 20:53:00 16 /min Alee ey Seybold - External Body height 2022-09-21 20:53:00 167.6 cm Michelle S eybold - External Body weight 2022-09-21 20:53:00 190.057 kg Michelle Oseguera eybold - External BMI 2022-09-21 20:53:00 67.63 kg/m2 Michelle Oseguera eybold - External Oxygen saturation in 2022-09-21 20:53:00 97 /min Michelle Zavalamansiaj - Arterial blood by External Pulse oximetry Systolic blood 2022-09-17 14:16:00 131 mm[Hg] Michelle Seybold - pressure External Diastolic blood 2022-09-17 14:16:00 79 mm[Hg] Kevin y Seybold - pressure External Heart rate 2022-09-17 14:16:00 93 /min Michelle S eybold - External Respiratory rate 2022-09-17 14:16:00 18 /min Alee doherty Seybold - External Body height 2022-09-17 14:16:00 167.6 cm Michelle S eybold - External Body weight 2022-09-17 14:16:00 101.515 kg Michelle S eybold - External BMI 2022-09-17 14:16:00 36.12 kg/m2 Michelle dohertybogage - External Procedures This patient has no known procedures. Encounters Start End Encounter Admission Attending Care Care Encounter Source Date/Time Date/Time Type Type Clinicians Facility Department ID 2021-04-[address] [facility] [id number] [place] 17:05:13 r [id number] [facility]ly [facility] 2021-04-[address] [facility] [id number] [facility] 17:03:25 r [id number] Formerly [facility] 2021-04-[address] [facility] [id number] [facility] 16:14:18 r [id number] [facility] 2023-01-11 2023-01-11 Outpatient MICHELLE ALBARRAN [id number] Michelle 09:45:00 09:45:00 DENEEN Seybol d 2023-01-04 2023-01-04 Outpatient MICHELLE PEREZ [id number] Michelle 14:30:00 14:30:00 ROXANE Seybol d 2022-12-23 2022-12-23 Outpatient MICHELLE PEREZ [id number] Michelle 09:30:00 09:30:00 ROXANE Seybol d 2022-12-04 2022-12-04 Outpatient MICHELLE NAIR [id number] Michelle 10:00:00 10:00:00 CORAZON Seybol d 2022-11-09 2022-11-09 Outpatient MICHELLE ALBARRAN [id number] Michelle 10:15:00 10:15:00 DENEEN Seybol d 2022-11-09 2022-11-09 Outpatient MICHELLE GARIBAY [id number] Michelle 08:30:00 08:30:00 MIAH Seybol d 2022-11-02 2022-11-02 Outpatient MICHELLE COOLEY [id number] Michelle 10:30:00 10:30:00 LADY Seybol d 2022-11-02 2022-11-02 Outpatient DEISY ESCALANTE [id number] Michelle 00:00:00 00:00:00 MD KAYLA Seybol d 2022-11-02 2022-11-02 Outpatient DEISY MICHELLE ESCALANTE [id number] Michelle 00:00:00 00:00:00 MD KAYLA Seybol d 2022-10-27 2022-10-27 Outpatient MICHELLE LEIGH [id number] Michelle 08:45:00 08:45:00 WESAM Seybol d 2022-10-18 2022-10-18 Outpatient MICHELLE SMITH [id number] Michelle 00:00:00 00:00:00 ROSALEE Seybol d 2022-10-18 2022-10-18 Outpatient MICHELLE SMITH [id number] Michelle 00:00:00 00:00:00 ROSALEE Seybol d 2022-10-13 2022-10-13 Outpatient MICHELLE GARIBAY [id number] Michelle 13:30:00 13:30:00 MIAH Seybol d 2022-10-13 2022-10-13 Outpatient MICHELLE SMITH [id number] Michelle 08:30:00 08:30:00 ROSALEE Seybol d 2022-09-22 2022-09-22 Outpatient MICHELLE SMITH [id number] Michelle 00:00:00 00:00:00 ROSALEE Seybol d 2022-09-22 2022-09-22 Outpatient MICHELLE SMITH [id number] Michelle 00:00:00 00:00:00 ROSALEE Seybol d 2022-09-21 2022-09-21 Outpatient LAB90 MICHELLE ESCALANTE [id number] Michelle 16:40:00 16:40:00 Seybol d 2022-09-21 2022-09-21 Outpatient MICHELLE SMITH [id number] Michelle 15:15:00 15:15:00 ROSALEE Seybol d 2022-09-17 2022-09-17 Outpatient MICHELLE MARTINEZ [id number] Michelle 09:30:00 09:30:00 CATA Seybol d 2022-09-15 2022-09-15 Outpatient MIHCELLE PINOT [id number] Michelle 00:00:00 00:00:00 CHET Seybo ld 2022-09-10 2022-09-10 Outpatient MICHELLE SCHNEIDER [id number] Michelle 16:00:00 16:00:00 ENRIQUE Seybol d 2022-09-08 2022-09-08 Outpatient MICHELLE KAYE [id number] Michelle 11:00:00 11:00:00 MARIAM Seybol d 2022-09-04 2022-09-04 Outpatient MICHELLE KAYE [id number] Michelle 09:00:00 09:00:00 MARIAM Seybol d 2022-09-04 2022-09-04 Outpatient DERRICK ESCALANTE [id number] Michelle 00:00:00 00:00:00 GLENN DOHERTY Se 2022-08-26 2022-08-26 Outpatient MICHELLE ARTHUR [id number] Michelle 09:00:00 09:00:00 NOE Navarreteo gage 2020-09-20 2020-09-20 Inpatient HCANW HCANW [id number] [facility] 02:12:50 02:12:50 57 [facility] are [facility] 2020-04-29 2020-04-29 Outpatient COH COH PDPFFAY BNR COH 00:00:00 00:00:00 [id number] 2020-04-20 2020-04-23 Inpatient HCANW TREVON [id number] [facility] 22:25:00 03:13:08 61 [facility] are [facility] 2019-10-06 2019-10-06 Office Kong Mario [facility] egacy Encounter/ [facility] 00:00:00 00:00:00 Visit Alistair Hayde [facility] [id number] [facility] [id number] [facility] 2019-08-27 2019-08-28 Inpatient HCANW TREVON [id number] [facility] 00:37:00 21:50:22 32 [facility] are [facility] 2019-08-24 2019-08-24 Office GEOFFREY Chawla Legshanice Encounte r/ [facility] 00:00:00 00:00:00 Visit Artie Frazier [id number] Kristine Carrillo [id number] [facility] Practice Results Test Description Test Time Test Comments Results Result Comments Source Novel Coronavirus 2019 nCoV 2020-04-23 19:50:00 Test Item Value Reference Range Interpretation Comme nts Novel Coronavirus 2019 Detected Not Detected A Criti enid Value reported toFirst nCoV (test code = COVID19) N cathy:[SOLANGE] Last Name:[VILLA]RES ULTS READ BACK AND VERIFIEDby INFC E, on 04/23/20, @ 1950.Testing wa s performed using the Aptima SARS -CoV-2 assay.This nucleic acid am plification test was developed and i tsperformance characteristics determined by [facility]. Nucleic acid amplification t ests include PCRand [...] virusand/or diagnosis of [place] VID-19 infection under cyfmbsv06 4(b)(1) of the Act, 21 U.S.C. 360bb [...] detected) result in this assay.Performed At: [facility] [id number] [place], [place] [id number] Tutu Petty MD Ph:[phone] Does patient have the clinical criteria consistent with COVID-19? YIs the patient going to be discharged home? Melviel Coronavirus 2018 [id number] 17:08:00 Test Item Value Reference Range Interpretation [...] Nucleic acid am plification tests include P CRanemma TMA. This test has n ot been FDA cleared or appr kathie.This test has been a uthorized by FDA under an Emergency UseAuthorizatio n (EUA). This test is on ly authorized fort he duration of time the dec laration that circumstan cesexist justifying the authorization o f the emergency use o fin vitro diagnostic test s for detection of SA RS-CoV-2 virusand/or maria luz gnosis of COVID-19 infect ion under kiscvwh850(b)(1 ) of the Act, 21 U.S.C. 360bbb-3(b) [...] result in this assay.Performed At: [facility] [address] [id number] Tutu Petty MD Ph:[phone] Does patient have the clinical criteria consistent with COVID-19? YIs the patient going to be discharged home? YCBC W/AUTO [id number] 01:57:00 Test Item Value Reference Range Interpretation [...] 0.0 x10 3/uL 0.0-0.1 N CBC W/AUTO [id number] 01:55:00 Test Item Value Reference Range Interpretation [...] = EO#) x10 3/uL 0.0-0.5 BASIC METABOLIC [id number] 01:50:00 Test Item Value Reference Range Interpretation [...] mg/dL 8.5-10.5 N = CA) LIVER FUNCTION [id number] 01:50:00 Test Item Value Reference Range Interpretation [...] code = 79 U/L 42-121 N ALKP) [id number] 01:50:00 Test Item Value Reference Range Interpretation Comments LIPASE (test code = LIP) 22 IU/L 22-51 N HCG SERUM [id number] 01:07:00 Test Item Value Reference Range Interpretation Comments HCG SERUM QUAL NEGATIVE NEGATIVE This is a ashlie litative (test code = HCGQL) screenin g test.The quantitative Bh cg may be helpful.Weakly positive results should be repeated in 48 hours. UA RFLX MICR CULT IF [id number] 01:02:00 Test Item Value Reference Range Interpretation [...] PainSpecimen Description: CLEAN CATCH- XR CHEST 2 [id number] 01:06:00Patient Name: NORMA LONDONO Unit No: [id number] EXAMS: CPT: [id number] XR CHEST 2 V 79524 CHEST 2 VIEWS: CLINICAL HISTORY: Cough TECHNIQUE: PA and lateral views of the chest. COMPARISON: 01/08/2017 FINDINGS: The cardiac silhouette is normal in size. Vascularity appears normal. The lungs are well expanded and clear. There are no pleural effusions. No pneumothorax is seen. No osseous abnormalities are seen. IMPRESSION: Negative chest radiograph. at 0106 Reported and signed by: Enrique Stinson MD CC: Doc No Technologist: Mary Weston Time: DAP (Gy m2): Air Kerma (mGy): Trscr Dt/Tm: 08/27/2019 (010) by:[email or web address] Orig Print D/T: S: 08/27/2019 (0109) BATCH NO: N/A Name: NORMA LONDONO [facility] ED Phys: Razia Valderrama [employer] [address] [facility] : 1995 Age: 24 Sex: [place] [address] Loc: N.ERS Exam Date: 08/27/2019 Status: PRE ER PH: FAX: PAGE 1 Signed Report Notes Date/Time Note Provider Source 2020-09-18 08:22:00-00:00 HCANW [facility] ([facility]) EMERGENCY PROVIDER REPORT REPORT#:[id number] REPORT STATUS: Signed DATE:09/18/20 TIME: 821 PATIENT: NORMA LONDONO UNIT #: [id number] ROOM: BED: AGE: 25 SEX: F PCP PHYS: Bala Montes MD SERVICE AUTHOR: Mark Fernando NP * ALL edits or amendments must be made on the [employer]/computer document * Mark Fernando NP 09/18/20 0822: HPI-Back Pain Under 40 Free Text HPI Notes Free Text HPI Notes 25-year-old female presents to the ED for evalua tion of lumbar strain after 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 She denies a PMH and reports an allergy to lisinopril. She denies of any urinary symptoms, BB incontin ence, numbness or tingling, saddle anesthesia, abdominal pain, chest pain or shortness of breath. LMP last week and denies . Ambulates well. General Confirmed Patient Yes Patient Type New patient Initial Greet Date/Time 09/18/20 0743 Presentation Chief Complaint Pain, lumbar Hx Obtained From Patient )( Sudden in Onset? No Associated with Denies: Abdominal pain, Chest pain, Dyspnea, Dys uria, Fever, Hematuria, Inability to walk, Incontinence bladder, Incontinence bowel, Nausea, Vomiting, Numbness, lower ext R, Numbn ess, lower ext L, Numbness, both lower ext, Tingling , lower ext R, Tingling, low er ext L, Tingling, both lower ext, Weakness, lower ext R, Weakness, lower ext L, Weakness, both low er ext. Risk-Back Pain Under 40 Risk Stratification Thoracic Aortic Dissection Risk factors reviewed Epidural Hematoma Risk factors reviewed Epidural Abscess Risk factors reviewed Review of Systems Focused Review of Systems Constitutional Denies: Chills, Fatigue, Fever. Respiratory Denies: Cough, non-productive, Cough, productive , Shortness of breath. Cardiovascular Denies: Chest pain. GI Denies: Abdominal pain, Constipation, Diarrhea, Nausea, Vomiting. Female Denies: Dysuria, Flank pain, Hematuria, , Urinary frequency, Urinary urgency, Vaginal bleeding - abnl, Vaginal discha rge. Musculoskeletal Reports: Back pain, Lumbar pain. Denies: Neck pa in, Thoracic pain. Neurologic Denies: Dizziness, Focal weakness, Headache, Num bness, Tingling. Past Medical History - Adult Stated Complaint BACK PAIN Allergies Coded Allergies: lisinopril (Severe, ANGIOEDEMA 08/27/19) Home Medications Active Scripts Ondansetron Odt (Zofran Odt) 4 MG PO Q6H PRN PRN NAUSEA/VOMITING Ondansetron Odt (Zofran Odt) 4 MG PO Q6H PRN HI N NAUSEA/VOMITING #15 TABS Prov: 04/21/20 Calculated Suicide Risk (nurs) No risk Review of Nursing Notes Triage notes reviewed Smoking status: Smoking status for patients 13 years old or old er: Unknown,if ever smoked Other Social History Local resident, Good social support Physical Exam Vital Signs Vital Signs First Documented: Result Date Time Pulse Ox 98 09/18 0742 B/P 114/76 / 0742 B/P Mean 88 09/18 0742 O2 Delivery Room air 09/18 0742 Temp 36.8 09/18 0742 Pulse 91 09/18 0742 Resp 20 09/18 0742 Last Documented: Result Date Time Pulse Ox 98 09/18 0742 B/P 114/76 09/18 0742 B/P Mean 88 09/18 0742 O2 Delivery Room air 09/18 0742 Temp 36.8 09/18 0742 Pulse 91 09/18 0742 Resp 20 09/18 0742 Review of Vital Signs Reviewed Free Text PE Notes Free Text PE Notes General: Awake, NAD, sitting calm, no distress Head: Atraumatic and normocephalic Eyes: PERRL, EOMI, no periorbital swelling, no p eriorbital redness Throat: Moist mucous membranes Neck: Full ROM, supple CV: Regular rhythm, warm and well perfused, Respiratory: no respiratory distress, lungs CTA GI: Soft, nontender, nondistended. No rebound or guarding : Deferred MSK Back: Full ROM, no CVAT, no spinal tendernes s. +L>R Lumbar paraspinal tendernss. Extremities: Neurovascularly intact, no deformit ies, no swelling Neuro: Aaox4, speech normal, cranial nerves jonathan sly intact, moving all extremities, appropriate interaction, gait maycol l Skin: warm, dry, no rashes, No erythema. Psych: Affect normal, mood normal, normal though t content Interpretation Diagnostics Point of Care Testing Pulse Oximetry Pulse Ox % 98 On: Room air Interpretation Interpreted by me, Pulse oximetr y normal Re-Evaluation MDM Free Text MDM Notes Free Text MDM Notes Patient endorsing lumbar spr ain after heavy lifting earlier today. She does not have any back pain red flags, neurologic al deficits, or inability to walk. She is requesting something for the pain and is refusing any muscle relaxants here in the hospital and would like requesting someth ing to go home with. We will discharge her with pain medication and m uscle relaxants have patient follow-up with her PCP as needed. Sierra t agrees with plan of care verbalizing content. Return to EC precautions given. Re-Evaluation/Progress Back Pain MDM Note The patient presented with acute back pain. The patient is now resting comfortably and feels better, is alert, talkativ e, interactive and in no distress. The repeat examination is unremarkable and benign. The patient is neurologically intact and is ambulatory in the ED. The patient has no fever, no bowel or bladder incontinenc e, no saddle anesthesia, and is otherwise alert and well-appearing. The history, physical ex amination, and diagnostics (if any) do not suggest the presence of acute spinal epidural abscess, acute spinal epidural bleed, cauda equina syndrome, abdominal aortic a neurysm, aortic dissection or other process requiring further testing, treatme nt or consultation in the emergency department. The vi shana signs have been stable. The patient's condition is stable and appropriate for discharge. The pat ient will pursue further outpatient evaluation with the primary care phys ician or other designated or consulting physician as indicated in the dischar ge instructions. ED Course Medication(s) Ordered Medication(s) Ordered: Central Nervous System Agents Sig/Rafiq Start time Last Medication Dose Route Stop Time Status Admin Ketorolac 30 MG X1ED STA 09/19 819 DC Tromethamine IM 09/18 820 Patient Discharge Departure Vital Signs/Condition Vital Signs First Documented: Result Date Time Pulse Ox 98 09/18 741 B/P 114/76 09/18 741 B/P Mean 88 09/18 741 O2 Delivery Room air 09/18 741 Temp 36.8 09/18 741 Pulse 91 09/18 741 Resp 20 09/18 741 Last Documented: Result Date Time Pulse Ox 98 09/18 741 B/P 114/76 09/18 741 B/P Mean 88 09/18 741 O2 Delivery Room air 09/18 741 Temp 36.8 09/18 741 Pulse 91 09/18 741 Resp 20 09/18 741 All vital signs available at the time of this en try have been reviewed. Condition Stable, Improved Clinical Impression Clinical Impression Primary Impression: Lumbar sprain Disposition Decision Discharge )( Discharged to Home Yes )( Time 0822 )( Date 09/18/20 Discharge/Care Plan Counseled Regarding Diagnosi s, Prescriptions, Need for follow-up, When to return to ED (Auto) Prescriptions Current Visit Scripts Ibuprofen (Motrin) 800 MG PO TID PRN PRN PAIN Ibuprofen (Motrin) 800 MG PO TID PRN PRN PAIN # 30 TABS Cyclobenzaprine (Flexeril) 10 MG PO Q8H PRN PRN MUSCLE SPASMS/PAIN Cyclobenzaprine (Flexeril) 10 MG PO Q8H PRN PRN MUSCLE SPASMS/PAIN #15 TABS Prescriptions Reviewed Risks, Benefits, Alternat joleen treatment Patient Instructions ED Back Exercises, Lumbar, ED Back Spasm, No Trauma, ED Back Sprain/Strain, Weight Loss and Healthy Karlene ng ... Additional Instructions Follow-up with your PCP as needed or if conditio n worsens Referrals Malka Waterman MD Departure Forms [facility] PCP LIST Discharge Note I have spoken with the patie nt and/or caregivers. I have explained the patient's condition, diagnoses and conrad atment plan based on the information available to me at this time. I have answered the patient's and/ or caregiver's questions and addressed any concerns. The patient and/or careg lucy have as good an understanding of the patient 's diagnosis, condition and treatment plan as can be expected at this point. The vital signs have bee n stable. The patient's condition is stable and appr opriate for discharge from the emergency department. The patient will pursue further outpatient evalu ation with the primary care physician or other designated or consulting phys ician as outlined in the discharge instructions. The patient and/or caregivers are agreeable to this plan of care and follow-up instructions have been exp lained in detail. The patient and/or caregivers have received these instructio ns in written format and have expressed an understanding of the discharge inst ructions. The patient and/or caregivers are aware that any significant change in condition or worsening of symptoms should prompt an immediate return to [facility] or the closest emergency department or a call to 911. Quality Measures BP F/U for HTN BP in normal range Low Back/Migraine Opiate Rx 18 years or older, D x low back pain/migraine, Discharged from ED, Opiate not prescribed Smoking Cessation Screened, non user JoshuaGal 09/21/20 1149: Patient Discharge Departure Supervising Physician Note MidLv Saw Pt Alone I was available for consultation as needed at al l times during the patient's visit in the emergency department. at 1921 RPT #:[id number] END OF REPORT 2020-09-18 08:22:00-00:00 HCANW [facility] ([facility]) EMERGENCY PROVIDER REPORT REPORT#:[id number] REPORT STATUS: Signed DATE:09/18/20 TIME: 821 PATIENT: NORMA LONDONO UNIT #: [id number] ROOM: BED: AGE: 25 SEX: F PCP PHYS: Bala Montes MD SERVICE AUTHOR: Mark Fernando NP * ALL edits or amendments must be made on the [employer]/computer document * Mark Fernando NP 09/18/20 0822: HPI-Back Pain Under 40 Free Text HPI Notes Free Text HPI Notes 25-year-old female presents to the ED for evalua tion of lumbar strain after 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 She denies a PMH and reports an allergy to lisinopril. She denies of any urinary symptoms, BB incontin ence, numbness or tingling, saddle anesthesia, abdominal pain, chest pain or shortness of breath. LMP last week and denies . Ambulates well. General Confirmed Patient Yes Patient Type New patient Initial Greet Date/Time 09/18/20 0743 Presentation Chief Complaint Pain, lumbar Hx Obtained From Patient )( Sudden in Onset? No Associated with Denies: Abdominal pain, Chest pain, Dyspnea, Dys uria, Fever, Hematuria, Inability to walk, Incontinence bladder, Incontinence bowel, Nausea, Vomiting, Numbness, lower ext R, Numbn ess, lower ext L, Numbness, both lower ext, Tingling , lower ext R, Tingling, low er ext L, Tingling, both lower ext, Weakness, lower ext R, Weakness, lower ext L, Weakness, both low er ext. Risk-Back Pain Under 40 Risk Stratification Thoracic Aortic Dissection Risk factors reviewed Epidural Hematoma Risk factors reviewed Epidural Abscess Risk factors reviewed Review of Systems Focused Review of Systems Constitutional Denies: Chills, Fatigue, Fever. Respiratory Denies: Cough, non-productive, Cough, productive , Shortness of breath. Cardiovascular Denies: Chest pain. GI Denies: Abdominal pain, Constipation, Diarrhea, Nausea, Vomiting. Female Denies: Dysuria, Flank pain, Hematuria, , Urinary frequency, Urinary urgency, Vaginal bleeding - abnl, Vaginal discha rge. Musculoskeletal Reports: Back pain, Lumbar pain. Denies: Neck pa in, Thoracic pain. Neurologic Denies: Dizziness, Focal weakness, Headache, Num bness, Tingling. Past Medical History - Adult Stated Complaint BACK PAIN Allergies Coded Allergies: lisinopril (Severe, ANGIOEDEMA 08/27/19) Home Medications Active Scripts Ondansetron Odt (Zofran Odt) 4 MG PO Q6H PRN PRN NAUSEA/VOMITING Ondansetron Odt (Zofran Odt) 4 MG PO Q6H PRN HI N NAUSEA/VOMITING #15 TABS Prov: 04/21/20 Calculated Suicide Risk (nurs) No risk Review of Nursing Notes Triage notes reviewed Smoking status: Smoking status for patients 13 years old or old er: Unknown,if ever smoked Other Social History Local resident, Good social support Physical Exam Vital Signs Vital Signs First Documented: Result Date Time Pulse Ox 98 09/18 741 B/P 114/76 09/18 741 B/P Mean 88 09/18 741 O2 Delivery Room air 09/18 741 Temp 36.8 09/18 741 Pulse 91 09/18 741 Resp 20 09/18 741 Last Documented: Result Date Time Pulse Ox 98 09/18 0642 B/P 114/76 09/18 0642 B/P Mean 88 09/18 741 O2 Delivery Room air 09/18 741 Temp 36.8 03/31 0742 Pulse 91 09/18 0742 Resp 20 09/18 0742 Review of Vital Signs Reviewed Free Text PE Notes Free Text PE Notes General: Awake, NAD, sitting calm, no distress Head: Atraumatic and normocephalic Eyes: PERRL, EOMI, no periorbital swelling, no p eriorbital redness Throat: Moist mucous membranes Neck: Full ROM, supple CV: Regular rhythm, warm and well perfused, Respiratory: no respiratory distress, lungs CTA GI: Soft, nontender, nondistended. No rebound or guarding : Deferred MSK Back: Full ROM, no CVAT, no spinal tendernes s. +L>R Lumbar paraspinal tendernss. Extremities: Neurovascularly intact, no deformit ies, no swelling Neuro: Aaox4, speech normal, cranial nerves jonathan sly intact, moving all extremities, appropriate interaction, gait maycol l Skin: warm, dry, no rashes, No erythema. Psych: Affect normal, mood normal, normal though t content Interpretation Diagnostics Point of Care Testing Pulse Oximetry Pulse Ox % 98 On: Room air Interpretation Interpreted by me, Pulse oximetr y normal Re-Evaluation MDM Free Text MDM Notes Free Text MDM Notes Patient endorsing lumbar spr ain after heavy lifting earlier today. She does not have any back pain red flags, neurologic al deficits, or inability to walk. She is requesting something for the pain and is refusing any muscle relaxants here in the hospital and would like requesting someth ing to go home with. We will discharge her with pain medication and m uscle relaxants have patient follow-up with her PCP as needed. Sierra t agrees with plan of care verbalizing content. Return to EC precautions given. Re-Evaluation/Progress Back Pain MDM Note The patient presented with acute back pain. The patient is now resting comfortably and feels better, is alert, talkativ e, interactive and in no distress. The repeat examination is unremarkable and benign. The patient is neurologically intact and is ambulatory in the ED. The patient has no fever, no bowel or bladder incontinenc e, no saddle anesthesia, and is otherwise alert and well-appearing. The history, physical ex amination, and diagnostics (if any) do not suggest the presence of acute spinal epidural abscess, acute spinal epidural bleed, cauda equina syndrome, abdominal aortic a neurysm, aortic dissection or other process requiring further testing, treatme nt or consultation in the emergency department. The vi shana signs have been stable. The patient's condition is stable and appropriate for discharge. The pat ient will pursue further outpatient evaluation with the primary care phys ician or other designated or consulting physician as indicated in the dischar ge instructions. ED Course Medication(s) Ordered Medication(s) Ordered: Central Nervous System Agents Sig/Rafiq Start time Last Medication Dose Route Stop Time Status Admin Ketorolac 30 MG X1ED STA 09/19 819 DC Tromethamine IM 09/18 820 Patient Discharge Departure Vital Signs/Condition Vital Signs First Documented: Result Date Time Pulse Ox 98 09/18 0742 B/P 114/76 / 0742 B/P Mean 88 09/18 0742 O2 Delivery Room air 09/18 0742 Temp 36.8 09/18 0742 Pulse 91 09/18 0742 Resp 20 09/18 0742 Last Documented: Result Date Time Pulse Ox 98 09/18 0742 B/P 114/76 09/18 0742 B/P Mean 88 09/18 0742 O2 Delivery Room air 09/18 0742 Temp 36.8 09/18 0742 Pulse 91 09/18 0742 Resp 20 09/18 0742 All vital signs available at the time of this en try have been reviewed. Condition Stable, Improved Clinical Impression Clinical Impression Primary Impression: Lumbar sprain Disposition Decision Discharge )( Discharged to Home Yes )( Time 08 )( Date 09/18/20 Discharge/Care Plan Counseled Regarding Diagnosi s, Prescriptions, Need for follow-up, When to return to ED (Auto) Prescriptions Current Visit Scripts Ibuprofen (Motrin) 800 MG PO TID PRN PRN PAIN Ibuprofen (Motrin) 800 MG PO TID PRN PRN PAIN # 30 TABS Cyclobenzaprine (Flexeril) 10 MG PO Q8H PRN PRN MUSCLE SPASMS/PAIN Cyclobenzaprine (Flexeril) 10 MG PO Q8H PRN PRN MUSCLE SPASMS/PAIN #15 TABS Prescriptions Reviewed Risks, Benefits, Alternat joleen treatment Patient Instructions ED Back Exercises, Lumbar, ED Back Spasm, No Trauma, ED Back Sprain/Strain, Weight Loss and Healthy Karlene ng ... Additional Instructions Follow-up with your PCP as needed or if conditio n worsens Referrals Malka Waterman MD Departure Forms [facility] PCP LIST Discharge Note I have spoken with the patie nt and/or caregivers. I have explained the patient's condition, diagnoses and conrad atment plan based on the information available to me at this time. I have answered the patient's and/ or caregiver's questions and addressed any concerns. The patient and/or careg lucy have as good an understanding of the patient 's diagnosis, condition and treatment plan as can be expected at this point. The vital signs have bee n stable. The patient's condition is stable and appr opriate for discharge from the emergency department. The patient will pursue further outpatient evalu ation with the primary care physician or other designated or consulting phys ician as outlined in the discharge instructions. The patient and/or caregivers are agreeable to this plan of care and follow-up instructions have been exp lained in detail. The patient and/or caregivers have received these instructio ns in written format and have expressed an understanding of the discharge inst ructions. The patient and/or caregivers are aware that any significant change in condition or worsening of symptoms should prompt an immediate return to [facility] or the closest emergency department or a call to 911. Quality Measures BP F/U for HTN BP in normal range Low Back/Migraine Opiate Rx 18 years or older, D x low back pain/migraine, Discharged from ED, Opiate not prescribed Smoking Cessation Screened, non user Gal Lewis 09/21/20 1149: Patient Discharge Departure Supervising Physician Note MidLv Saw Pt Alone I was available for consultation as needed at al l times during the patient's visit in the emergency department. at 1921 at 1149 RPT #:[id number] END OF REPORT 2020-09-18 08:22:00-00:00 HCANJayla [facility] ([facility]) EMERGENCY PROVIDER REPORT REPORT#:[id number] REPORT STATUS: Signed DATE:09/18/20 TIME: 821 PATIENT: NORMA LONDONO UNIT #: [id number] ROOM: BED: AGE: 25 SEX: F PCP PHYS: Bala Montes MD SERVICE AUTHOR: Mark Fernando [employer] HELPER * ALL edits or amendments must be made on the [employer]/computer document * HPI-Back Pain Under 40 Free Text HPI Notes Free Text HPI Notes 25-year-old female presents to the ED for evalua tion of lumbar strain after 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 She denies a PMH and reports an allergy to lisinopril. She denies of any urinary symptoms, BB incontin ence, numbness or tingling, saddle anesthesia, abdominal pain, chest pain or shortness of breath. LMP last week and denies . Ambulates well. General Confirmed Patient Yes Patient Type New patient Initial Greet Date/Time 09/18/20 0743 Presentation Chief Complaint Pain, lumbar Hx Obtained From Patient )( Sudden in Onset? No Associated with Denies: Abdominal pain, Chest pain, Dyspnea, Dys uria, Fever, Hematuria, Inability to walk, Incontinence bladder, Incontinence bowel, Nausea, Vomiting, Numbness, lower ext R, Numbn ess, lower ext L, Numbness, both lower ext, Tingling , lower ext R, Tingling, low er ext L, Tingling, both lower ext, Weakness, lower ext R, Weakness, lower ext L, Weakness, both low er ext. Risk-Back Pain Under 40 Risk Stratification Thoracic Aortic Dissection Risk factors reviewed Epidural Hematoma Risk factors reviewed Epidural Abscess Risk factors reviewed Review of Systems Focused Review of Systems Constitutional Denies: Chills, Fatigue, Fever. Respiratory Denies: Cough, non-productive, Cough, productive , Shortness of breath. Cardiovascular Denies: Chest pain. GI Denies: Abdominal pain, Constipation, Diarrhea, Nausea, Vomiting. Female Denies: Dysuria, Flank pain, Hematuria, , Urinary frequency, Urinary urgency, Vaginal bleeding - abnl, Vaginal discha rge. Musculoskeletal Reports: Back pain, Lumbar pain. Denies: Neck pa in, Thoracic pain. Neurologic Denies: Dizziness, Focal weakness, Headache, Num bness, Tingling. Past Medical History - Adult Stated Complaint BACK PAIN Allergies Coded Allergies: lisinopril (Severe, ANGIOEDEMA 08/27/19) Home Medications Active Scripts Ondansetron Odt (Zofran Odt) 4 MG PO Q6H PRN PRN NAUSEA/VOMITING Ondansetron Odt (Zofran Odt) 4 MG PO Q6H PRN HI N NAUSEA/VOMITING #15 TABS Prov: 04/21/20 Calculated Suicide Risk (nurs) No risk Review of Nursing Notes Triage notes reviewed Smoking status: Smoking status for patients 13 years old or old er: Unknown,if ever smoked Other Social History Local resident, Good social support Physical Exam Vital Signs Vital Signs First Documented: Result Date Time Pulse Ox 98 09/18 0742 B/P 114/76 09/18 0742 B/P Mean 88 09/18 0742 O2 Delivery Room air 09/18 741 Temp 36.8 09/18 741 Pulse 91 09/18 741 Resp 20 09/18 741 Last Documented: Result Date Time Pulse Ox 98 09/18 0742 B/P 114/76 09/18 0742 B/P Mean 88 09/18 0742 O2 Delivery Room air 09/18 741 Temp 36.8 09/18 0642 Pulse 91 09/18 0742 Resp 20 09/18 0642 Review of Vital Signs Reviewed Free Text PE Notes Free Text PE Notes General: Awake, NAD, sitting calm, no distress Head: Atraumatic and normocephalic Eyes: PERRL, EOMI, no periorbital swelling, no p eriorbital redness Throat: Moist mucous membranes Neck: Full ROM, supple CV: Regular rhythm, warm and well perfused, Respiratory: no respiratory distress, lungs CTA GI: Soft, nontender, nondistended. No rebound or guarding : Deferred MSK Back: Full ROM, no CVAT, no spinal tendernes s. +L>R Lumbar paraspinal tendernss. Extremities: Neurovascularly intact, no deformit ies, no swelling Neuro: Aaox4, speech normal, cranial nerves jonathan sly intact, moving all extremities, appropriate interaction, gait maycol l Skin: warm, dry, no rashes, No erythema. Psych: Affect normal, mood normal, normal though t content Interpretation Diagnostics Point of Care Testing Pulse Oximetry Pulse Ox % 98 On: Room air Interpretation Interpreted by me, Pulse oximetr y normal Re-Evaluation MDM Free Text MDM Notes Free Text MDM Notes Patient endorsing lumbar spr ain after heavy lifting earlier today. She does not have any back pain red flags, neurologic al deficits, or inability to walk. She is requesting something for the pain and is refusing any muscle relaxants here in the hospital and would like requesting someth ing to go home with. We will discharge her with pain medication and m uscle relaxants have patient follow-up with her PCP as needed. Sierra sevilla agrees with plan of care verbalizing content. Return to EC precautions given. Re-Evaluation/Progress Back Pain MDM Note The patient presented with acute back pain. The patient is now resting comfortably and feels better, is alert, talkativ e, interactive and in no distress. The repeat examination is unremarkable and benign. The patient is neurologically intact and is ambulatory in the ED. The patient has no fever, no bowel or bladder incontinenc e, no saddle anesthesia, and is otherwise alert and well-appearing. The history, physical ex amination, and diagnostics (if any) do not suggest the presence of acute spinal epidural abscess, acute spinal epidural bleed, cauda equina syndrome, abdominal aortic a neurysm, aortic dissection or other process requiring further testing, treatme nt or consultation in the emergency department. The vi shana signs have been stable. The patient's condition is stable and appropriate for discharge. The pat ient will pursue further outpatient evaluation with the primary care phys ician or other designated or consulting physician as indicated in the dischar ge instructions. ED Course Medication(s) Ordered Medication(s) Ordered: Central Nervous System Agents Sig/Rafiq Start time Last Medication Dose Route Stop Time Status Admin Ketorolac 30 MG X1ED STA 09/19 819 DC Tromethamine IM 09/18 820 Patient Discharge Departure Vital Signs/Condition Vital Signs First Documented: Result Date Time Pulse Ox 98 09/18 741 B/P 114/76 09/18 741 B/P Mean 88 09/18 741 O2 Delivery Room air 09/18 741 Temp 36.8 09/18 741 Pulse 91 09/18 741 Resp 09/18 Last Documented: Result Date Time Pulse Ox 98 09/18 741 B/P 114/76 09/18 741 B/P Mean 88 09/18 741 O2 Delivery Room air 09/18 741 Temp 36.8 09/18 741 Pulse 91 09/18 741 Resp 20 09/18 741 All vital signs available at the time of this en try have been reviewed. Condition Stable, Improved Clinical Impression Clinical Impression Primary Impression: Lumbar sprain Disposition Decision Discharge )( Discharged to Home Yes )( Time 08 )( Date 09/18/20 Discharge/Care Plan Counseled Regarding Diagnosi s, Prescriptions, Need for follow-up, When to return to ED (Auto) Prescriptions Current Visit Scripts Ibuprofen (Motrin) 800 MG PO TID PRN PRN PAIN Ibuprofen (Motrin) 800 MG PO TID PRN PRN PAIN # 30 TABS Cyclobenzaprine (Flexeril) 10 MG PO Q8H PRN PRN MUSCLE SPASMS/PAIN Cyclobenzaprine (Flexeril) 10 MG PO Q8H PRN PRN MUSCLE SPASMS/PAIN #15 TABS Prescriptions Reviewed Risks, Benefits, Alternat joleen treatment Patient Instructions ED Back Exercises, Lumbar, ED Back Spasm, No Trauma, ED Back Sprain/Strain, Weight Loss and Healthy Karlene ng ... Additional Instructions Follow-up with your PCP as needed or if conditio n worsens Referrals Malka Waterman MD Departure Forms [facility] PCP LIST Discharge Note I have spoken with the patie nt and/or caregivers. I have explained the patient's condition, diagnoses and conrad atment plan based on the information available to me at this time. I have answered the patient's and/ or caregiver's questions and addressed any concerns. The patient and/or careg lucy have as good an understanding of the patient 's diagnosis, condition and treatment plan as can be expected at this point. The vital signs have bee n stable. The patient's condition is stable and appr opriate for discharge from the emergency department. The patient will pursue further outpatient evalu ation with the primary care physician or other designated or consulting phys ician as outlined in the discharge instructions. The patient and/or caregivers are agreeable to this plan of care and follow-up instructions have been exp lained in detail. The patient and/or caregivers have received these instructio ns in written format and have expressed an understanding of the discharge inst ructions. The patient and/or caregivers are aware that any significant change in condition or worsening of symptoms should prompt an immediate return to [facility] or the closest emergency department or a call to 911. Quality Measures BP F/U for HTN BP in normal range Low Back/Migraine Opiate Rx 18 years or older, D x low back pain/migraine, Discharged from ED, Opiate not prescribed Smoking Cessation Screened, non user at 1921 RPT #:[id number] END OF REPORT 2020-04-20 23:04:00-00:00 HCANW [facility] ([facility]) EMERGENCY PROVIDER REPORT REPORT#:[id number] REPORT STATUS: Signed DATE:04/20/20 TIME: 2303 PATIENT: NORMA LONDONO UNIT #: [id number] ROOM: BED: AGE: 24 SEX: F PCP PHYS: Bala Montes MD SERVICE AUTHOR: Judah Trotter DO * ALL edits or amendments must be made on the [employer]/computer document * HPI-General Illness Free Text HPI Notes Free Text HPI Notes 24-year-old female with a negative past medical history presents to the emergency department with complaint of body ache s, diarrhea with nausea and vomiting, cough fever and headache which began a pproximately 2 days ago. Patient denies any sick contacts. Patient did st ate that she did faint today. Patient denies any injuries. Patient is obese. No reported shortness of breath or chest pain. General Confirmed Patient Yes Initial Greet Date/Time 04/20/202227 Presentation Chief Complaint Diarrhea, Vomiting Hx Obtained From Patient Review of Systems ROS Statements All systems rev neg except as marked. Review of Systems Constitutional Reports: Fever. Respiratory Reports: Cough, non-productive. Cardiovascular Denies: Chest pain, Dyspnea on exertion, Edema, Orthopnea, Palpitations, Parox nocturnal dyspnea, Syncope. GI Reports: Diarrhea, Vomiting. Neurologic Reports: Syncope. Past Medical History - Adult Stated Complaint NAUSEA, COUGH, FEVER, HEADACHE Allergies Coded Allergies: lisinopril (Severe, ANGIOEDEMA 08/27/19) Smoking status for patients 13 years old or olde r: Never Smoker Other Social History Local resident, Good social support Free Text PMH Notes Past Medical History Morbidly obese Past Surgical History [pt reports none significant] Family History [pt reports none significant to chief complaint] Social History [pt denies tobacco use, alcohol use and illicit drug use] Physical Exam Vital Signs Vital Signs First Documented: Result Date Time Pulse Ox 100 04/20 2226 B/P 138/88 04/20 2226 B/P Mean 104 04/20 2226 Temp 99.2 04/20 2226 Pulse 96 04/20 2226 Resp 18 04/20 2226 O2 Delivery Room air 04/21 135 Last Documented: Result Date Time Pulse Ox 100 04/21 135 B/P 139/85 04/21 135 B/P Mean 103 04/21 135 O2 Delivery Room air 04/21 135 Pulse 101 04/21 135 Resp 17 04/21 135 Temp 99.2 04/20 2226 Review of Vital Signs Reviewed, Vital signs abno rmal Physical Exam General/Const General/Const Awake, Alert, No acute distress, Well appearing Appearance/Presentation Obese, morbidly. MS Head Head Normocephalic Eyes Eyes PERRL Ears/Nose/Throat Ears/Nose/Throat Airway patent, Mucous membrane s moist, Pharynx NL MS Neck Neck Supple, No meningismus, Full range of siri on, No swelling, Non-tender, No masses Resp/Chest Respiratory/Chest Breath sounds NL, Breath soun ds = bilat, No respiratory distress, No rales, No rhonchi, No wheezing Cardiovascular Cardiovascular Heart rate NL, Regular r hythm, Heart sounds NL, Cap refill not delayed, Peripheral circulation NL Abdomen/GI Abdomen/GI Soft, Non-tender, No guarding, No re bound MS Upper Extrem Upper Extremity/MS Inspection NL, No swelling, Non-tender, No erythema, No deformity, Neurologic intact, Vascular intact, N o clubbing/cyanosis MS Lower Extrem Lower Ext/Pelvis/MS Inspection NL, No swelling, Non-tender, No erythema, No deformity, Neurologic intact, Vascular intact, N o edema Skin Skin Color NL, Warm, Dry, Turgor NL Neurologic Neurologic Oriented X3, Speech NL, No motor def icits, No sensory deficits Psychiatric Psychiatric Affect NL, Mood NL, Thought content NL Free Text PE Notes Free Text PE Notes Limited focused exam performed due to COVID-19 e pidemic. Interpretation Diagnostics Lab Results Interpretation Results Laboratory Tests 04/21/20129: [Embedded Image Not Available] Laboratory Tests: 04/21 Chemistry Sodium (135 - 145 mmol/L) 135 Potassium (3.6 - 5.0 mmol/L) 4.1 Chloride (101 - 111 mmol/L) 103 Carbon Dioxide (21 - 31 mmol/L) 22 BUN (6 - 20 mg/dl) 10 Creatinine (0.44 - 1.03 mg/dL) 0.71 Glomerular Filtr Rate (>60) >=60 max estimate Glucose (70 - 100 mg/dl) 92 Calcium (8.5 - 10.5 mg/dL) 9.0 Total Bilirubin (0.2 - 1.3 mg/dL) 0.50 Direct Bilirubin (0.00 - 0.20 mg/dL) 0.2 AST (10 - 42 U/L) 18 ALT (10 - 60 U/L) 19 Total Alk Phosphatase (42 - 121 U/L) 79 Total Protein (6.7 - 8.2 g/dL) 7.8 Albumin (3.2 - 5.5 g/dL) 3.4 Lipase (22 - 51 IU/L) 22 Serum HCG, Qual (NEGATIVE) NEGATIVE Hematology WBC (3.2 - 11.5 x10 3/uL) 8.4 RBC (3.70 - 5.10 x10(6)/m) 4.81 Hgb (12.0 - 15.0 g/dL) 12.4 Hct (35.7 - 44.8 %) 40.8 MCV (80 - 100 fL) 85 MCH (26.2 - 33.8 pg) 25.8 L MCHC (30.0 - 34.0 g/dL) 30.4 RDW (11.3 - 14.5 %) 13.5 Plt Count (130 - 408 x10 3/uL) 177 MPV (8.6 - 12.6 fL) 11.6 Neut % (Auto) (40.0 - 70.0 %) 80.1 H Lymph % (Auto) (20 - 40 %) 10.2 L [place] % (Auto) (1 - 10 %) 6.6 Eos % (Auto) (0.0 - 5.0 %) 2.0 Baso % (Auto) (0.0 - 1.0 %) 0.5 Neut # (Auto) (1.6 - 7.2 x10 3/uL) 6.8 Lymph # (Auto) (1.1 - 2.7 x10 3/uL) 0.86 L [place] # (Auto) (0.3 - 0.8 x10 3/uL) 0.6 Eos # (Auto) (0.0 - 0.5 x10 3/uL) 0.2 Baso # (Auto) (0.0 - 0.1 x10 3/uL) 0.0 Immature Gran % (0.0 - 2.0 %) 0.6 Nucleated RBC % (0.0 - 0.9 %) 0.0 Urines Urine Color (YELLOW) YELLOW Urine Appearance (CLEAR) Clear Urine pH (5.0 - 9.0) 5.0 Ur Specific [place] (1.001 - 1.030) 1.019 Urine Protein (NEGATIVE) NEGATIVE Urine Glucose (UA) (NEGATIVE) NEGATIVE Urine Ketones (NEGATIVE) NEGATIVE Urine Blood (NEGATIVE) NEGATIVE Urine Nitrite (NEGATIVE) NEGATIVE Urine Bilirubin (NEGATIVE) NEGATIVE Urine Urobilinogen (<=1.0) NEGATIVE Ur Leukocyte Esterase (NEGATIVE) NEGATIVE Urine RBC (0 - 5 /HPF) 0-5 Urine WBC (0 - 5 /HPF) 0-5 Ur Epithelial Cells (NONE - FEW /LPF) OCC Urine Bacteria (NONE SEEN /HPF) 1+ H Urine Mucus (NONE SEEN /LPF) 1+ Urine Ascorbic Acid NEGATIVE Lab Statement Laboratory studies reviewed and considered in [facility] medical decision-making. Re-Evaluation MDM ED Course Medication(s) Ordered Medication(s) Ordered: Electrolytic, Caloric, And Patrick Sig/Rafiq Start time Last Medication Dose Route Stop Time Status Admin Sodium Chloride 1,000 ML X1ED STA 04/20 2301 DC 04/21 IV 04/20 2302 0131 Gastrointestinal Drugs Sig/Rafiq Start time Last Medication Dose Route Stop Time Status Admin Ondansetron HCl 4 MG ONCE ONE 04/20 2315 DC IV 04/20 2316 0130 Free Text MDM Notes Free Text MDM Notes Vital signs stable no respiratory difficulty. Field spect most likely viral illness. Discharge home with outpatient follow-u p in 2 to 3 days. Patient Discharge Departure Vital Signs/Condition Vital Signs First Documented: Result Date Time Pulse Ox 100 04/20 2226 B/P 138/88 04/20 2226 B/P Mean 104 04/20 2226 Temp 99.2 04/20 2226 Pulse 96 04/20 2226 Resp 18 04/20 2226 O2 Delivery Room air 04/21 135 Last Documented: Result Date Time Pulse Ox 100 04/21 135 B/P 139/85 04/21 135 B/P Mean 103 04/21 135 O2 Delivery Room air 04/21 135 Pulse 101 04/21 135 Resp 17 04/21 135 Temp 99.2 04/20 2226 All vital signs available at the time of this en try have been reviewed. Condition Stable, Improved Clinical Impression Clinical Impression Primary Impression: Viral illness Secondary Impressions: Syncope, Vomiting Disposition Decision Discharge )( Discharged to Home Yes )( Time 0154 )( Date 04/21/20 Discharge/Care Plan Counseled Regarding Diagnosi s, Lab results, Imaging studies, Prescriptions, Need for follow-up, When to return to ED (Auto) Prescriptions Current Visit Scripts Ondansetron Odt (Zofran Odt) 4 MG PO Q6H PRN PRN NAUSEA/VOMITING Ondansetron Odt (Zofran Odt) 4 MG PO Q6H PRN HI N NAUSEA/VOMITING #15 TABS Patient Instructions ED Diet for Vomiting or Maria Luz rrhea Adult, ED URI Viral Referrals Sammie Loya MD: 2-3 Days Discharge Note I have spoken with the patie nt and/or caregivers. I have explained the patient's condition, diagnoses and conrad atment plan based on the information available to me at this time. I have answered the patient's and/ or caregiver's questions and addressed any concerns. The patient and/or careg lucy have as good an understanding of the patient 's diagnosis, condition and treatment plan as can be expected at this point. The vital signs have bee n stable. The patient's condition is stable and appr opriate for discharge from the emergency department. The patient will pursue further outpatient evalu ation with the primary care physician or other designated or consulting phys ician as outlined in the discharge instructions. The patient and/or caregivers are agreeable to this plan of care and follow-up instructions have been exp lained in detail. The patient and/or caregivers have received these instructio ns in written format and have expressed an understanding of the discharge inst ructions. The patient and/or caregivers are aware that any significant change in condition or worsening of symptoms should prompt an immediate return to [facility] or the closest emergency department or a call to 911. Electronically Signed by Judah Trotter DO on 07/10 at 0438 RPT #:[id number] END OF REPORT 2019-08-27 01:12:00-00:00 [facility] ([facility]) EMERGENCY PROVIDER REPORT REPORT#:[id number] REPORT STATUS: Signed DATE:08/27/19 TIME: 011 PATIENT: NORMA LONDONO UNIT #: [id number] ROOM: BED: AGE: 24 SEX: F PCP PHYS: Bala Montes MD SERVICE AUTHOR: Indra Schneider PA-C * ALL edits or amendments must be made on the [employer] document * HPI-URI/Cough/Cold General Confirmed Patient Yes Initial Greet Date/Time 08/27/19 0039 Presentation Chief Complaint Cough, non-p roductive, Fever, Nasal congestion, Runny nose, Sore throat, Upper resp infection Hx Obtained From Patient Onset Occurred One week ago Symptom Duration Since onset Progression since Onset Waxes and wanes Severity: Onset Mild Severity: Current Moderate Associated with Reports: Body aches, Cough, Fever, Sore throat, Sputum production. Denies: Chills, Headache, Myalgia, Nausea, Neck pain, Ra sh, Shortness of breath, Vomiting. Exacerbated by Nothing Relieved by Nothing Context Immunization Status General Unknown Recent Healthcare Recent doctor visit Free Text HPI Notes Free Text HPI Notes 24yo F presents with gradual onset sore throat, fever, nasal congestion, productive cough, variable, migrant myal gias x 1 week. Previously evaluated at , diagnosed viral URI, pre scribed Promethazine for cough (DC'd by patient afte 1 dose due to side effects). Patient denies head ache, neck pain or stiffness, nausea, vomiting. Review of Systems Focused Review of Systems Constitutional Reports: Fever. Denies: Chills. Eyes Denies: Discharge bilat, Redness bilat. Ears/Nose/Throat Reports: Nasal congestion, Sore throat. Denies: Earache bilat. Respiratory Reports: Cough, productive (clear-green). Denies : Shortness of breath, Wheezing. GI Denies: Abdominal pain, Nausea, Vomiting. Skin Denies: Rash. Neurologic Denies: Dizziness, Headache, Lightheaded, Syncop e. Past Medical History - Adult Stated Complaint PT STATED HAVING SORE THROAT,CO UGH X ONE WEEK Allergies Coded Allergies: lisinopril (Severe, ANGIOEDEMA 08/27/19) Pt reports no significant: Past medical history Smoking status for patients 13 years old or olde r: Never Smoker Physical Exam Vital Signs Vital Signs First Documented: Result Date Time Pulse Ox 99 08/26 0041 B/P 127/83 08/261 B/P Mean 97 08/26 40 Temp 37.0 08/26 004 Pulse 92 08/26 40 Resp 20 08/26 40 Last Documented: Result Date Time Pulse Ox 99 08/26 0041 B/P 127/83 08/26 004 B/P Mean 97 08/26 004 Temp 37.0 08/26 004 Pulse 92 08/26 004 Resp 20 08/26 40 Review of Vital Signs Reviewed, Vital signs norm al Focused PE General/Const General/Const Awake, Alert, No acute di stress, Well appearing, Well developed , Well hydrated, Well nourished, Cooperative, No t toxic appearing Appearance/Presentation Obese, morbidly. Eyes Eyes No periorbital redness, No periorbital swe lling, Conjunctiva NL Ears/Nose/Throat Ears/Nose/Throat Airway patent, Mucous membrane s moist, Pharynx NL, Tympanic membs NL, Ext aud canal NL, Mastoid area NL Nose Discharge nasal clear. MS Neck Neck Supple, No meningismus, Full range of siri on Resp/Chest Respiratory/Chest Breath sounds NL, Breath soun ds = bilat, No respiratory distress Cardiovascular Cardiovascular Heart rate NL, Regular rhythm Skin Skin Color NL, No rash, Warm, Dry Neurologic Neurologic Oriented X3, Speech NL Interpretation Diagnostics Lab Results Interpretation Results Microbiology: Date/Time Procedure - Status Source Growth 08/26 109 Group A Streptococcus Screen (ANA) - RES THROAT 08/26 109 Throat Culture - RES THROAT 08/26 109 Influenza Virus Type B Antigen - COM P NASAL 08/26 109 Influenza Virus Type A Antigen - COM P NASAL Recent Impressions: RADIOLOGY - XR CHEST 2 V 08/26 44 Report Impression - Status: SIGNED Entered: 08/27/2019108 IMPRESSION: Negative chest radiograph. Impression By: [email or web address] - Enrique Stinson MD Lab Imaging Statement Laboratory radiographic studies reviewed and con sidered in the medical decision-making. Point of Care Testing Pulse Oximetry Pulse Ox % 99 On: Room air Interpretation Interpreted by me, Pulse oximetr y normal Time 004 Re-Evaluation MDM Re-Evaluation/Progress Re-Evaluation/Progress Text/Dict Note Discussed lab results, imagi ng, diagnosis, treatment plan, prescriptions, follow -up instructions, return precautions. Time of Re-Eval 136 Re-Eval Status Unchanged Differential Diagnosis Differential Diagnosis Bronc hitis, Pharyngitis, streptococca, Pharyngitis, viral , Pneumonia, Upper resp infection, Viral syndrom e Patient Discharge Departure Vital Signs/Condition Vital Signs First Documented: Result Date Time Pulse Ox 99 08/26 0041 B/P 127/83 08/26 0041 B/P Mean 97 08/26 004 Temp 37.0 08/26 40 Pulse 92 08/26 40 Resp 20 08/26 40 Last Documented: Result Date Time Pulse Ox 99 08/26 0041 B/P 127/83 08/26 0041 B/P Mean 97 / 004 Temp 37.0 08/26 40 Pulse 92 08/26 004 Resp 20 08/26 40 All vital signs available at the time of this en try have been reviewed. Condition Stable Clinical Impression Clinical Impression Primary Impression: Acute bronchitis Disposition Decision Discharge )( Discharged to Home Yes )( Time 013 )( Date 08/27/19 Discharge/Care Plan Counseled Regarding Diagnosi s, Lab results, Imaging studies, Prescriptions, Need for follow-up, When to return to ED Prescriptions tessalon, prednisone, zpack Prescriptions Reviewed Risks, Benefits, Alternat joleen treatment Discharge Note The patient is now resting c omfortably, is alert and in no distress. The patient has a normal mental status a nd is neurologically intact. There is no respiratory distress and no signs of systemic toxicity. The history, exam, diagnostic testing (if any) and current condition do not demonstrate an infectious process such as meningitis, severe pneumonia, retrophary ngeal abscess, epiglottitis, sepsis or other serious bact erial infection requiring further testing, treatment , consultation, or admission at this time. The vital signs have been stable. The patient's condition is stable and appropriate fo r discharge. The patient will pursue further outpatient evaluation with the [facility] physician or other designated or consulting physician as in dicated in the discharge instructions. Quality Measures Current Medications Attest: Medication review Tobacco Screening/Cessation 18 years or older, Emma smithies tobacco use at 1354 RPT #:[id number] END OF REPORT 2019-08-27 01:12:00-00:00 [facility] ([facility]) EMERGENCY PROVIDER REPORT REPORT#:[id number] REPORT STATUS: Signed DATE:08/27/19 TIME: 0112 PATIENT: NORMA LONDONO UNIT #: [id number] ROOM: BED: AGE: 24 SEX: F PCP PHYS: Bala Montes MD SERVICE AUTHOR: Indra Schneider PA-C * ALL edits or amendments must be made on the [employer] document * HPI-URI/Cough/Cold General Confirmed Patient Yes Initial Greet Date/Time 08/27/19 0039 Presentation Chief Complaint Cough, non-p roductive, Fever, Nasal congestion, Runny nose, Sore throat, Upper resp infection Hx Obtained From Patient Onset Occurred One week ago Symptom Duration Since onset Progression since Onset Waxes and wanes Severity: Onset Mild Severity: Current Moderate Associated with Reports: Body aches, Cough, Fever, Sore throat, Sputum production. Denies: Chills, Headache, Myalgia, Nausea, Neck pain, Ra sh, Shortness of breath, Vomiting. Exacerbated by Nothing Relieved by Nothing Context Immunization Status General Unknown Recent Healthcare Recent doctor visit Free Text HPI Notes Free Text HPI Notes 24yo F presents with gradual onset sore throat, fever, nasal congestion, productive cough, variable, migrant myal gias x 1 week. Previously evaluated at , diagnosed viral URI, pre scribed Promethazine for cough (DC'd by patient afte 1 dose due to side effects). Patient denies head ache, neck pain or stiffness, nausea, vomiting. Review of Systems Focused Review of Systems Constitutional Reports: Fever. Denies: Chills. Eyes Denies: Discharge bilat, Redness bilat. Ears/Nose/Throat Reports: Nasal congestion, Sore throat. Denies: Earache bilat. Respiratory Reports: Cough, productive (clear-green). Denies : Shortness of breath, Wheezing. GI Denies: Abdominal pain, Nausea, Vomiting. Skin Denies: Rash. Neurologic Denies: Dizziness, Headache, Lightheaded, Syncop e. Past Medical History - Adult Stated Complaint PT STATED HAVING SORE THROAT,CO UGH X ONE WEEK Allergies Coded Allergies: lisinopril (Severe, ANGIOEDEMA 08/27/19) Pt reports no significant: Past medical history Smoking status for patients 13 years old or olde r: Never Smoker Physical Exam Vital Signs Vital Signs First Documented: Result Date Time Pulse Ox 99 / 0041 B/P 127/83 08/26 0041 B/P Mean 97 08/26 004 Temp 37.0 08/26 004 Pulse 92 08/26 0041 Resp 20 08/26 40 Last Documented: Result Date Time Pulse Ox 99 / 0041 B/P 127/83 08/26 0041 B/P Mean 97 08/26 0041 Temp 37.0 08/26 004 Pulse 92 08/26 004 Resp 20 08/26 40 Review of Vital Signs Reviewed, Vital signs norm al Focused PE General/Const General/Const Awake, Alert, No acute di stress, Well appearing, Well developed , Well hydrated, Well nourished, Cooperative, No t toxic appearing Appearance/Presentation Obese, morbidly. Eyes Eyes No periorbital redness, No periorbital swe lling, Conjunctiva NL Ears/Nose/Throat Ears/Nose/Throat Airway patent, Mucous membrane s moist, Pharynx NL, Tympanic membs NL, Ext aud canal NL, Mastoid area NL Nose Discharge nasal clear. MS Neck Neck Supple, No meningismus, Full range of siri on Resp/Chest Respiratory/Chest Breath sounds NL, Breath soun ds = bilat, No respiratory distress Cardiovascular Cardiovascular Heart rate NL, Regular rhythm Skin Skin Color NL, No rash, Warm, Dry Neurologic Neurologic Oriented X3, Speech NL Interpretation Diagnostics Lab Results Interpretation Results Microbiology: Date/Time Procedure - Status Source Growth 08/26 109 Group A Streptococcus Screen (ANA) - RES THROAT 08/26 109 Throat Culture - RES THROAT 08/26 109 Influenza Virus Type B Antigen - COM P NASAL 08/26 109 Influenza Virus Type A Antigen - COM P NASAL Recent Impressions: RADIOLOGY - XR CHEST 2 V 08/26 44 Report Impression - Status: SIGNED Entered: 08/27/2019 0109 IMPRESSION: Negative chest radiograph. Impression By: [email or web address] - Enrique Stinson MD Lab Imaging Statement Laboratory radiographic studies reviewed and con sidered in the medical decision-making. Point of Care Testing Pulse Oximetry Pulse Ox % 99 On: Room air Interpretation Interpreted by me, Pulse oximetr y normal Time 004 Re-Evaluation MDM Re-Evaluation/Progress Re-Evaluation/Progress Text/Dict Note Discussed lab results, imagi ng, diagnosis, treatment plan, prescriptions, follow -up instructions, return precautions. Time of Re-Eval 136 Re-Eval Status Unchanged Differential Diagnosis Differential Diagnosis Bronc hitis, Pharyngitis, streptococca, Pharyngitis, viral , Pneumonia, Upper resp infection, Viral syndrom e Patient Discharge Departure Vital Signs/Condition Vital Signs First Documented: Result Date Time Pulse Ox 99 03/08 0041 B/P 127/83 03/08 0041 B/P Mean 97 03/08 0041 Temp 37.0 03/08 0041 Pulse 92 03/08 0041 Resp 20 / 0041 Last Documented: Result Date Time Pulse Ox 99 03/08 0041 B/P 127/83 03/ 0041 B/P Mean 97 03/08 0041 Temp 37.0 03/08 0041 Pulse 92 03/08 0041 Resp 20 / 0041 All vital signs available at the time of this en try have been reviewed. Condition Stable Clinical Impression Clinical Impression Primary Impression: Acute bronchitis Disposition Decision Discharge )( Discharged to Home Yes )( Time 0138 )( Date 08/27/19 Discharge/Care Plan Counseled Regarding Diagnosi s, Lab results, Imaging studies, Prescriptions, Need for follow-up, When to return to ED Prescriptions tessalon, prednisone, zpack Prescriptions Reviewed Risks, Benefits, Alternat joleen treatment Discharge Note The patient is now resting c omfortably, is alert and in no distress. The patient has a normal mental status a nd is neurologically intact. There is no respiratory distress and no signs of systemic toxicity. The history, exam, diagnostic testing (if any) and current condition do not demonstrate an infectious process such as meningitis, severe pneumonia, retrophary ngeal abscess, epiglottitis, sepsis or other serious bact erial infection requiring further testing, treatment , consultation, or admission at this time. The vital signs have been stable. The patient's condition is stable and appropriate fo r discharge. The patient will pursue further outpatient evaluation with the [facility] care physician or other designated or consulting physician as in dicated in the discharge instructions. Quality Measures Current Medications Attest: Medication review Tobacco Screening/Cessation 18 years or older, D enies tobacco use at 1354 Electronically Signed by Alan López DO on 03/10 at 0554 RPT #:[id number] END OF REPORT
[2022-12-01] MEDS ORDERED: MAGNESIUM SULFATE 1 gm IVPB 1 GM/100 ML BAG IV ONE (23:22)
[2022-12-01 23:30] LABS: Absolute Lymphocytes (CBC) 2.7 K/uL (0.7-4.9); Hematocrit 39.7 % (36.0-45.0); Lymphocytes % 17.8 % (15.3-44.8); MCV 82.3 fL (80-100); MPV 10.2 fL (7.6-11.3); RBC Red Blood Cell Count 4.82 M/uL (3.86-4.86)
[2022-12-01 23:33] LABS: Protime INR 1.11
[2022-12-01 23:52] LABS: SARS-CoV-2 Antigen Rapid Res Negative (Negative)
[2022-12-01 23:58] LABS: ALT/SGPT 22 U/L (13-56); AST/SGOT 9 U/L (15-37); Albumin 3.5 g/dL (3.4-5.0); Alkaline Phosphatase 103 U/L (45-117); BUN Blood Urea Nitrogen 7 mg/dL (7-18); Bicarbonate 26 mEq/L (21-32); Bilirubin Total 0.4 mg/dL (0.2-1.0); Glomerular Filtration Rate 98 ml/min (=/>90); Glucose Level 100 mg/dL (74-106); Potassium 3.2 mEq/L (3.5-5.1); Protein, Total 8.4 g/dL (6.4-8.2); Sodium Level 138 mEq/L (136-145)
[2022-12-02 00:09] LABS: Bilirubin Direct < 0.1 mg/dL (0-0.2); Bilirubin Indirect, Calculated ND mg/dL (0.2-0.8)
[2022-12-02] MEDS ORDERED: POTASSIUM CL SA 10 MEQ TAB PO ONE (00:33)
--- NOTE | 2022-12-02 01:31 | EDPHYS ---
Physician Documentation [facility] Name: Shandra kiet Age: 27 yrs Sex: Female : 1995 Arrival Date: 12/01/2022 Time: 21:57 Bed 14 Private MD: ED Physician Augustine Key HPI: 12/01 23:29 This 27 yrs old Black Female presents to ER via Ambulatory with complaints of Sore kb Throat, Congestion, Fever, Wheezing > 1 Year. 23:29 Pt reports cough, shortness of breath, fever, sore throat that started 3 days ago and kb has gotten worse. . 23:33 The patient or guardian reports cough, that is intermittent, described as moderate, kb difficulty breathing, flu symptoms. Onset: The symptoms/episode began/occurred 3 day(s) ago. Severity of symptoms: At their worst the symptoms were moderate, in the emergency department the symptoms are unchanged. Modifying factors: The symptoms are alleviated by nothing, the symptoms are aggravated by nothing. Associated signs and symptoms: Pertinent positives: fever, rhinorrhea, sore throat. The patient has not experienced similar symptoms in the past. The patient has not recently seen a physician. 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 - Social history:: Smoking status: Patient denies any tobacco usage or history of. ROS: 23:33 Abdomen/GI: Negative for abdominal pain, nausea, vomiting, diarrhea, and constipation. kb 23:33 Constitutional: Positive for body aches, chills, fatigue, fever, malaise. 23:33 ENT: Positive for ear pain, rhinorrhea, sinus congestion, sore throat. 23:33 Respiratory: Positive for cough, shortness of breath, wheezing. 23:33 All other systems are negative. Exam: 23:00 ECG was reviewed by the Attending Physician. kb 23:34 Constitutional: This is a well developed, well nourished patient who is awake, alert, kb and in no acute distress. Head/Face: Normocephalic, atraumatic. ENT: Moist Mucous membranes Cardiovascular: Regular rate and rhythm with a normal S1 and S2. No gallops, murmurs, or rubs. No pulse deficits. Abdomen/GI: Soft, non-tender. No distention Skin: Warm, dry with normal turgor. Normal color. MS/ Extremity: Pulses equal, no cyanosis. Neurovascular intact. Full, normal range of motion. Neuro: Awake and alert, GCS 15, oriented to person, place, time, and situation. Moves all extremities. Normal gait. 23:34 Respiratory: mild respiratory distress is noted, Respirations: labored breathing, that is moderate, Breath sounds: wheezing: inspiratory expiratory that is moderate, is heard diffusely. Vital Signs: 22:14 BP 156 / 93; Pulse 120; Resp 22; Temp 99.4; Pulse Ox 98% ; Weight 179.17 kg; Height 5 vc1 ft. 5 in. ; Pain 8/10; 23:00 BP 151 / 98; Pulse 118; Resp 22 S; Pulse Ox 99% on R/A; ha1 12/02 00:00 BP 119 / 67; Pulse 101; Resp 21 S; Pulse Ox 99% on R/A; ha1 01:00 BP 129 / 67; Pulse 101; Resp 17 S; Pulse Ox 99% on R/A; ha1 12/01 22:14 Body Mass Index 65.73 (179.17 kg, 165.1 cm) vc1 12/01 22:14 Pain Scale: Adult vc1 MDM: 12/01 22:09 Patient medically screened. kb 23:35 Differential Diagnosis: Bronchitis Influenza Upper Respiratory Infection Asthma kb Exacerbation Viral Syndrome Pneumonia. Data reviewed: vital signs, nurses notes. 12/02 01:30 Counseling: I had a detailed discussion with the patient and/or guardian regarding: the kb historical points, exam findings, and any diagnostic results supporting the discharge/admit diagnosis, lab results, radiology results, the need for outpatient follow up, a family practitioner, to return to the emergency department if symptoms worsen or persist or if there are any questions or concerns that arise at home. Response to treatment: the patient's symptoms have markedly improved after treatment. 12/01 22:15 Order name: CBC with Diff; Complete Time: 23:35 kb 12/01 22:15 Order name: Flu; Complete Time: 00:52 kb 12/01 22:15 Order name: SARS RAPID; Complete Time: 23:55 kb 12/01 22:17 Order name: Blood Culture Adult (2) kb 12/01 22:17 Order name: Lactate w/ 2H reflex if indic.; Complete Time: 23:55 kb 12/01 22:17 Order name: Protime (+inr); Complete Time: 23:35 kb 12/01 22:17 Order name: Ptt, Activated; Complete Time: 23:35 kb 12/01 22:17 Order name: LFT's; Complete Time: 00:11 kb 12/01 23:26 Order name: Basic Metabolic Panel; Complete Time: 00:11 EDMS 12/01 22:15 Order name: Chest Single View XRAY kb 12/01 22:17 Order name: EKG; Complete Time: 22:18 kb 12/01 22:15 Order name: IV Start; Complete Time: 23:07 kb 12/01 22:17 Order name: EKG - Nurse/Tech; Complete Time: 23:06 kb 12/01 22:17 Order name: IV Saline Lock - Large Bore; Complete Time: 23:06 kb 12/01 22:17 Order name: Labs collected and sent; Complete Time: 23:06 kb 12/01 22:17 Order name: O2 Per Protocol; Complete Time: 23:06 kb 12/01 22:17 Order name: O2 Sat Monitoring; Complete Time: 23:06 kb 12/01 22:17 Order name: Vital Signs; Complete Time: 23:06 kb EC/13 23:00 Rate is 120 beats/min. Rhythm is regular. QRS [place] is Normal. WI interval is normal at kb 134 msec. QRS interval is normal at 84 msec. QT interval is normal at 446 msec. Administered Medications: 22:33 Drug: DuoNeb Nebulize (2.5 mg - 0.5 mg) 3 ml Route: Nebulizer; [facility] 23:00 Follow up: Response: No adverse reaction ha1 23:00 Drug: Magnesium Sulfate IVPB 1 grams Route: IVPB; Infused Over: 1 hrs; Site: right ha1 antecubital; 12/02 01:45 Follow up: Response: No adverse reaction; IV Status: Completed infusion; IV Intake: ha1 100ml 12/01 23:00 Drug: NS 0.9% IV 1000 ml Route: IV; Rate: 1 bolus; Site: right antecubital; 12/02 01:45 Follow up: Response: No adverse reaction; IV Status: Completed infusion; IV Intake: ha1 1000ml 12/01 23:00 Drug: MethylPrednisoLONE IVP 125 mg Route: IVP; Site: right antecubital; 12/02 01:44 Follow up: Response: No adverse reaction 12/01 23:07 Not Given (Duplicate Order): DuoNeb Nebulize (3:1) (2.5 mg - 0.5 mg) 3 ml Nebulizer once 23:07 Not Given (Duplicate Order): NS 0.9% IV 1000 ml IV at 1000 ml once 23:07 Not Given (Duplicate Order): MethylPrednisoLONE IVP 125 mg IVP once 12/02 00:28 Drug: Potassium Chloride PO 40 mEq Route: PO; [facility] 01:00 Follow up: Response: No adverse reaction [facility] Disposition: 02:06 Co-signature as Attending Physician, Augustine Key MD I reviewed the patient's care rt provided by the Advanced Practice Provider and agree with the diagnosis and treatment plan. Disposition Summary: 12/02/22 01:30 Discharge Ordered Location: Home kb Condition: Stable kb Diagnosis - Fever, unspecified kb - Cough kb Followup: kb - With: Emergency Department - When: As needed - Reason: Worsening of condition Followup: kb - With: Private Physician - When: 2 - 3 days - Reason: Recheck today's complaints, Continuance of care, Re-evaluation by your physician Discharge Instructions: - Discharge Summary Sheet kb - Cough, Adult, [id number] kb Forms: - Medication Reconciliation Form kb - Thank You Letter kb - Antibiotic Education kb - Prescription Opioid Use kb Prescriptions: - Prednisone 20 mg Oral Tablet - take 1 tablet by ORAL route once daily for 5 days; 5 tablet; Refills: 0, kb Product Selection Permitted - Zithromax 500 mg Oral Tablet - take 1 tablet by ORAL route once daily for 5 days; 5 tablet; Refills: 0, kb Product Selection Permitted Signatures: Dispatcher [employer] Kailey Mota FNP-C FNP-Ckb Calcote, Vanessa, RN RN 1 Destinee Paniagua RN RN [facility] Augustine Key MD MD rt Corrections: (The following items were deleted from the chart) 12/01 23:25 22:16 BASIC METABOLIC PANEL+[email or web address].VIKASH ordered. EDMS EDMS
--- NOTE | 2022-12-02 01:31 | ER ---
Nurse's Notes [facility] Name: Shandra Gauthier Age: 27 yrs Sex: Female : 1995 Arrival Date: 12/01/2022 Time: 21:57 Bed 14 Private MD: Diagnosis: Fever, unspecified;Cough Presentation: 12/01 22:14 Chief complaint: Patient states: "I started feeling sick Wednesday night, my throat hurt vc1 and I have been coughing. Last night it got worse and now I'm having shortness of breath and my ribs hurt so bad from coughing. Also, my left ear is clogged.". Coronavirus screen: Vaccine status: Patient reports receiving the 2nd dose of the covid vaccine. plus booster; [employer] Client denies travel out of the [place] in the last 14 days. cough unrelated to allergies, difficulty breathing, fever, muscle pain, sore throat, Client presents with at least one sign or symptom that may indicate coronavirus-19. Standard/surgical mask placed on the client. Provider contacted for isolation considerations. Ebola Screen: Patient negative for fever greater than or equal to 101.5 degrees Fahrenheit, and additional compatible Ebola Virus Disease symptoms Patient denies exposure to infectious person. Patient denies travel to an Ebola-affected area in the 21 days before illness onset. No symptoms or risks identified at this time. Initial Sepsis Screen: Does the patient meet any 2 criteria? RR > 20 per min. HR > 90 bpm. Yes Does the patient have a suspected source of infection? Yes: Productive cough/pneumonia. Risk Assessment: Do you want to hurt yourself or someone else? Patient reports no desire to harm self or others. Onset of symptoms was November 29, 2022. 22:14 Method Of Arrival: Ambulatory vc1 22:14 Acuity: JACKELIN 3 vc1 Triage Assessment: 22:19 General: Appears in no apparent distress. uncomfortable, obese, Behavior is vc1 cooperative. Pain: Complains of pain in ribs Pain does not radiate. Pain currently is 8 out of 10 on a pain scale. Quality of pain is described as sharp, Is episodic, Aggravated by coughing and taking deep breaths Noted to be grimacing. EENT: Reports Left ear clogged and pressure. Neuro: Level of Consciousness is awake, alert, obeys commands, Oriented to person, place, time, situation, Appropriate for age. Cardiovascular: No deficits noted. Respiratory: Reports shortness of breath at rest cough that is productive, labored breathing pain with cough Pain is 8 out of 10 on a pain scale. pain with respiration Airway is patent Respiratory effort is even, labored, Respiratory pattern is symmetrical, tachypnea Breath sounds with wheezes bilaterally. the patient has moderate shortness of breath. GI: No deficits noted. No signs and/or symptoms were reported involving the gastrointestinal system. : No deficits noted. No signs and/or symptoms were reported regarding the genitourinary system. Derm: No deficits noted. No signs and/or symptoms reported regarding the dermatologic system. Musculoskeletal: No deficits noted. No signs and/or symptoms reported regarding the musculoskeletal system. 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 - Social history:: Smoking status: Patient denies any tobacco usage or history of. Screenin:22 [facility] ED Fall Risk Assessment (Adult) History of falling in the last 3 months, vc1 including since admission No falls in past 3 months (0 pts) Confusion or Disorientation No (0 pts) Intoxicated or Sedated No (0 pts) Impaired Gait No (0 pts) Mobility Assist Device Used No (0 pt) Altered Elimination No (0 pt) Score/Fall Risk Level 0 - 2 = Low Risk Oriented to surroundings, Maintained a safe environment, Educated pt \\T\\ family on fall prevention, incl call for assistance when getting out of bed. Abuse screen: Denies threats or abuse. Nutritional screening: No deficits noted. Tuberculosis screening: No symptoms or risk factors identified. Assessment: 22:04 General: Appears uncomfortable, Behavior is cooperative. Pain: Complains of pain in ha1 sore throat Pain does not radiate. Pain currently is 6 out of 10 on a pain scale. Neuro: Level of Consciousness is awake, alert, obeys commands, Oriented to person, place, time, situation. Cardiovascular: Capillary refill < 3 seconds Patient's skin is warm and dry. Respiratory: Airway is patent Respiratory effort is even, unlabored, Respiratory pattern is regular, symmetrical. Respiratory: Reports shortness of breath at rest cough that is non-productive. GI: : No signs and/or symptoms were reported regarding the genitourinary system. Derm: Skin is normal. Musculoskeletal: Circulation, motion, and sensation intact. Range of motion: intact in all extremities. 22:04 EENT: Throat is clear. ha1 23:00 Reassessment: Patient and/or family updated on plan of care and expected duration. Pain ha1 level reassessed. Patient is alert, oriented x 3, equal unlabored respirations, skin warm/dry/pink. Patient states symptoms have improved. 12/02 00:00 Reassessment: Patient and/or family updated on plan of care and expected duration. Pain ha1 level reassessed. Patient is alert, oriented x 3, equal unlabored respirations, skin warm/dry/pink. Patient states feeling better. Patient states symptoms have improved. 01:00 Reassessment: Patient and/or family updated on plan of care and expected duration. Pain ha1 level reassessed. Patient is alert, oriented x 3, equal unlabored respirations, skin warm/dry/pink. 01:00 Respiratory: Airway is patent Respiratory effort is even, unlabored, Respiratory ha1 pattern is regular, symmetrical. Vital Signs: 12/01 22:14 BP 156 / 93; Pulse 120; Resp 22; Temp 99.4; Pulse Ox 98% ; Weight 179.17 kg; Height 5 vc1 ft. 5 in. ; Pain 8/10; 23:00 BP 151 / 98; Pulse 118; Resp 22 S; Pulse Ox 99% on R/A; ha1 12/02 00:00 BP 119 / 67; Pulse 101; Resp 21 S; Pulse Ox 99% on R/A; ha1 01:00 BP 129 / 67; Pulse 101; Resp 17 S; Pulse Ox 99% on R/A; ha1 12/01 22:14 Body Mass Index 65.73 (179.17 kg, 165.1 cm) vc1 12/01 22:14 Pain Scale: Adult vc1 ED Course: 12/01 22:02 Patient arrived in ED. ja2 22:09 [facility]iley El [facility]C [facility] kb 22:09 Augustine Key MD is Attending Physician. kb 22:18 Triage completed. vc1 22:21 Arm band placed on right wrist. vc1 22:22 Patient has correct armband on for positive identification. Bed in low position. Call vc1 light in reach. Client placed on continuous cardiac and pulse oximetry monitoring. NIBP monitoring applied. 22:25 Missed attempt(s): 22 gauge in left wrist. ha1 22:32 Destinee Paniagua RN is Primary Nurse. ha1 22:37 Chest Single View XRAY In Process Unspecified. EDMS 23:00 Inserted saline lock: 20 gauge in right antecubital area, using aseptic technique. oe Blood collected. 23:06 Blood Culture Adult (2) Sent. ha1 23:06 Lactate w/ 2H reflex if indic. Sent. ha1 23:06 Protime (+inr) Sent. ha1 23:06 Ptt, Activated Sent. ha1 12/02 01:42 No provider procedures requiring assistance completed. IV discontinued, intact, ha1 bleeding controlled, No redness/swelling at site. Pressure dressing applied. Administered Medications: 12/01 22:33 Drug: DuoNeb Nebulize (2.5 mg - 0.5 mg) 3 ml Route: Nebulizer; ha 23:00 Follow up: Response: No adverse reaction ha 23:00 Drug: Magnesium Sulfate IVPB 1 grams Route: IVPB; Infused Over: 1 hrs; Site: right [facility] antecubital; 12/02 01:45 Follow up: Response: No adverse reaction; IV Status: Completed infusion; IV Intake: ha1 100ml 12/01 23:00 Drug: NS 0.9% IV 1000 ml Route: IV; Rate: 1 bolus; Site: right antecubital; [facility] 12/02 01:45 Follow up: Response: No adverse reaction; IV Status: Completed infusion; IV Intake: ha1 1000ml 12/01 23:00 Drug: MethylPrednisoLONE IVP 125 mg Route: IVP; Site: right antecubital; 12/02 01:44 Follow up: Response: No adverse reaction [facility] 12/01 23:07 Not Given (Duplicate Order): DuoNeb Nebulize (3:1) (2.5 mg - 0.5 mg) 3 ml Nebulizer once 23:07 Not Given (Duplicate Order): NS 0.9% IV 1000 ml IV at 1000 ml once ha1 23:07 Not Given (Duplicate Order): MethylPrednisoLONE IVP 125 mg IVP once ha1 12/02 00:28 Drug: Potassium Chloride PO 40 mEq Route: PO; ha1 01:00 Follow up: Response: No adverse reaction ha1 Medication: 12/01 22:22 VIS not applicable for this client. vc1 Intake: 12/02 01:45 IV: 1000ml; Total: 1000ml. ha1 01:45 IV: 100ml; Total: 1100ml. ha1 Outcome: 01:30 Discharge ordered by . rigoberto 01:42 Discharged to home ambulatory. ha1 01:42 Condition: stable 01:42 Discharge instructions given to patient, Instructed on discharge instructions, follow up and referral plans. medication usage, Demonstrated understanding of instructions, follow-up care, medications, Prescriptions given X 2. 01:45 Patient left the ED. ha1 Signatures: Dispatcher [employer] EDMS Kailey El, ALAN-C GROUP MANAGER-CkDustin Souza Jessica ja2 Veronica Dawkins, RN RN vc1 Destinee Paniagua, RASHIDA RN ha1 Corrections: (The following items were deleted from the chart) 00:20 12/01 23:00 BP 151 / 98; Pulse 118bpm; Resp 18bpm; Spontaneous; Pulse Ox 99% RA; ha1 ha1
[2022-12-02 02:09] VITALS: TEMP 99.4
[2022-12-02 02:10] VITALS: O2SAT 99
[2022-12-02 02:13] VITALS: BP 129/67
--- NOTE | 2022-12-02 08:18 | EKG ---
Test Date: 2022-12-01 Test Time: 22:36:13 Principal Secretary: GUADALUPE MEASUREMENT RESULTS: Intervals: Rate: 120 LA: 134 QRSD: 84 QT: 316 QTc: 446 [place]: P: 52 LA: 134 QRS: 1 T: 29 INTERPRETIVE STATEMENTS: Sinus tachycardia Minimal voltage criteria for LVH, may be normal variant Nonspecific T wave abnormality Abnormal ECG No previous ECG available for comparison Electronically Signed On 12-02-22 08:17:23 CDT by Jovanny Mosley
--- NOTE | 2022-12-02 10:29 | RAD REPORT ---
EXAM DESCRIPTION: RAD - Chest Single View - 12/01/2022 10:36 pm CLINICAL HISTORY: The patient is 27 years old and is Female; Congestion;Cough TECHNIQUE: Frontal view of the chest. COMPARISON: No relevant prior studies available. FINDINGS: Lungs: Prominent interstitial and vascular markings. No consolidation. Pleural space: Unremarkable. No pneumothorax. Heart: Unremarkable. Mediastinum: Unremarkable. Bones/joints: Linear metallic densities overlying the right shoulder. IMPRESSION: Prominent interstitial and vascular markings. No consolidation. Electronically signed by: Shaheen Sanchez MD 12/02/2022 1:21 AM CDT Due to temporary technical issues with the PACS/Fluency reporting system, reports are being signed by the in house radiologist without review as a courtesy to ensure prompt reporting. The interpreting r adiologist is fully responsible for the content of the report.
== END 2022-12-02 01:45 | disposition home or self-care (01) ==
LOC: ER 21:57
DX: R50.9 Fever, unspecified (principal); R05.9 Cough, unspecified
CPT/HCPCS: 36415; 71045; 80048; 80076; 83605; 85025; 85610; 85730; 87040; 87804; 87811; 93005; 94640; 96365; 96366; 96375; 99285; J2930; J3475; J7030; J7613; J7644